=== PATIENT | male | born 1980 | race Caucasian/White ===

== ENCOUNTER → 2022-04-18 11:21 | Outpatient (CLI) | payer OTHER, MEDICAID, SELFPAY ==
[2022-04-18 12:58] LABS: Hemoglobin A1C% w Est Avg Glu 5.6 % (4.0-6.0)
[2022-04-18 13:08] LABS: Alanine Aminotransferase 28 IU/L (<50); Albumin 4.5 g/dL (3.5-5.0); Albumin Globulin Ratio 1.3 (1.0-2.8); Alkaline Phosphatase 48 U/L (38-126); Aspartate Aminotransferase 28 IU/L (17-59); BUN Creatinine Ratio 23.9 (6-22); Bilirubin Total 0.6 mg/dL (0.2-1.3); Blood Urea Nitrogen 21 mg/dL (9-20); Calcium 8.7 mg/dL (8.4-10.2); Carbon Dioxide 28 mmol/L (22-32); Chloride 102 mmol/L (98-107); Cholesterol 201 mg/dL (140-199); Estimated Glomerular Filt Rate > 60 mL/min (>60); Globulin 3.4 g/dL (1.7-4.1); Glucose 89 mg/dL (70-100); HDL Cholesterol 44 mg/dL (40-60); HEMOLYSIS 18 (0-50); LDL Cholesterol Calculated 126 mg/dL (<100); Potassium 4.6 mmol/L (3.4-5.1); Sodium 138 mmol/L (137-145); Total Protein 7.9 g/dL (6.3-8.2); Triglycerides 153 mg/dL (35-150)
== END ==
PROVIDERS: Family Provider Family Medicine; PCP Family Medicine; Referring Provider Family Medicine; Visit Provider Family Medicine
DX: R03.0 Elevated blood-pressure reading, without diagnosis of hypertension (principal)
CPT/HCPCS: 36415; 80053; 80061; 83036

== ENCOUNTER 2022-07-21 09:45 | Outpatient (RCR) | payer OTHER, MEDICAID, SELFPAY ==
--- NOTE | 2022-05-23 12:51 | PT.OIE ---
Current Diagnoses Impingement syndrome of unspecified shoulder (05/23/22) Lateral epicondylitis, right elbow (05/23/22) Sprain of unspecified ligament of right ankle, initial encounter (05/23/22) Sprain of unspecified ligament of right ankle, subsequent encounter (05/23/22) Past Medical History (Last Updated 04/19/22 @ 08:55 by Evangelina Nava DO) Acne (~1994) Benign essential HTN Depression Herpes (~2014) Hyperlipidemia Tourette syndrome (~2000) Visit Care Team Role Provider Type Evangelina Nava DO Attending Provider Physician Family Provider Primary Care Provider Referring Provider Specialty: Family Practice Address: [address] [place] [address], [address], [facility] Email: [email or web address] [facility] Initial Evaluation PT-OP-A Visit Information Start: 05/23/22 12:14 Freq: Status: Active Protocol: Document 05/23/22 10:30 DCW (Rec: 05/23/22 12:34 DCW [id number]) Out-Patient Physical Therapy Visit Information Visit Information Visit Type Initial Evaluation Visit Start Time 10:30 Visit Stop Time 11:15 Total Visit Minutes 45 Visit Number 1 Number of JOB SERVICE CONSULTANT Visits 0 Evaluation Information Evaluation Date 05/23/22 PT-OP-B Current Condition Start: 05/23/22 12:14 Freq: Status: Active Protocol: Document 05/23/22 10:30 DCW (Rec: 05/23/22 12:34 DCW [id number]) Current Condition History of Current Condition Onset Date Four month history Current Complaints R ankle pain, R forearm/elbow pain, left shoulder pain History of Current Condition Pt is a very active 42 year old male presenting with myriad complaints of various body parts. Biggest complaint at the moment is continued right lateral ankle pain following a fall and ankle sprain four months ago. Pt reported intense pain at the time, and required use of crutches for a while to walk around. Has improved since then, he is able to do most activities, but still gets increased pain with lateral movements or when standing sideways on a hill so his ankle is being forced into inversion. Second complaint is right forearm and elbow pain that began 3-4 months ago after carrying a kayak for an extended period of time. Pt has continuing pain with most repetitive wrist and finger extension motions. Pain is located mainly at lateral epicondyle, but can go through his lateral forearm. Lastly, pt complains of a ~25 year old left shoulder injury, causes difficulty lifting his arm up to the side and overhead, results occasionally with pain and weakness. All of these injuries limit his ability to perform expected job activities while working at [employer], which requires him to be very active and participate in lifting and carrying. Treatment Goals Patient/Caregiver Goals Improve ability to participate in work activities pain-free. Personal Factors Other Personal Factors That May Effect HTN, Depression, Tourette Therapy/Recovery syndrome PT-OP-C Subjective Start: 05/23/22 12:14 Freq: Status: Active Protocol: Document 05/23/22 10:30 DCW (Rec: 05/23/22 12:34 DCW [id number]) OP-PT Subjective Patient Comments Patient Comments I've been really looking forward to getting in here and finding out what I can do to help with some of this stuff. Patient Reported Progress Improving OP-PT Pain Assessment Pain Assessment Grid Paper Pain Assessment Grid Completed Yes: See scan in chart PT-OP-F Manual Assessment Start: 05/23/22 12:14 Freq: Status: Active Protocol: Document 05/23/22 10:30 DCW (Rec: 05/23/22 12:34 DCW [id number]) Manual Assessments Other Manual Assessments Other Manual Assessments Increased tone in right lateral calf, right lateral forearm. Tenderness to palpation specifically at R ATF ligament in ankle and lateral epicondyle/common extensor tendon. PT-OP-K Range of Motion Start: 05/23/22 12:14 Freq: Status: Active Protocol: Document 05/23/22 10:30 DCW (Rec: 05/23/22 12:34 DCW [id number]) Ankle and Foot Goniometric Range of Motion Ankle and Foot Right Active Testing Position Sitting Dorsiflexion with Knee Flexed 0 Dorsiflexion with Knee Extended 0 Plantarflexion 60 Inversion 38 Eversion 21 Left Active Testing Position Sitting Dorsiflexion with Knee Flexed 8 Dorsiflexion with Knee Extended 0 Plantarflexion 60 Inversion 43 Eversion 22 PT-OP-L Special Tests Start: 05/23/22 12:14 Freq: Status: Active Protocol: Document 05/23/22 10:30 DCW (Rec: 05/23/22 12:34 DCW [id number]) Special Tests Shoulder Special Tests Painful Arc Test Results Positive R Thompson Meño Impingement Test Results Positive R Empty Can Test Results Negative Drop Arm Rotator Cuff Test Results Negative Elbow Special Tests Varus- 25 Degrees Test Results Negative Valgus- 25 Degrees Test Results Negative Medial Epicondylitis Test Results Negative Lateral Epicondylitis Flexed Test Results Positive R Lateral Epicondylitis Extended Test Results Positive R Foot/Ankle Special Tests Les Test ER-15 Degrees Test Results Negative Post Tibiotalor Subluxation Test Results Negative Peroneal Subluxation Test Results Negative Anterior Draw Test Results Negative PT-OP-M Strength Start: 05/23/22 12:14 Freq: Status: Active Protocol: Document 05/23/22 10:30 DCW (Rec: 05/23/22 12:34 DCW [id number]) Wrist Strength Wrist Manual Muscle Testing Right Flexion (C7) 5 Normal Extension (C6) 4 Good Ulnar Deviation 5 Normal Radial Deviation 4 Good Comments Pain with Ext and RD Ankle/Foot Strength Ankle and Foot Manual Muscle Testing Right Dorsiflexion (L4) 4+ Good+ Plantarflexion (S1) 4+ Good+ Inversion 5 Normal Eversion (S1) 4 Good Comments Increased pain with resisted right ankle eversion PT-OP-T Assessment and Plan Start: 05/23/22 12:14 Freq: Status: Active Protocol: Document 05/23/22 10:30 DCW (Rec: 05/23/22 12:51 DCW [id number]) Physical Therapy Assessment Rehab Potential Rehabilitation Potential Good Evaluation Complexity Number of Personal Factors/Comorbidities 3 or More Number of Body Systems Impaired 4 or More Clinical Presentation at Evaluation Unstable Impairments Impairments Functional Activities, Functional Mobility,Pain,Soft Tissue Mobility,Strength,Tone Goals Three Impairment Pt has difficulty performing job functions due to forearm and elbow pain Hospital Chief Executive Officer Goal (LTG) Pt to report return to normal work activities, such as carrying heavy items and chopping wood, without causing pain in his right elbow. LTG Duration 07/23/22 Two Impairment Pt experiences increased pain in right ankle ambulating on uneven surfaces Hospital Chief Executive Officer Goal (LTG) Pt to demonstrate ability to walk on trails and other uneven surfaces with no right ankle pain by improving ankle strength and stability LTG Duration 07/23/22 One Impairment Pt does not have an appropriate home exercise program Short Term Goal (STG) Pt to be [id number] and compliant with an appropriate HEP STG Duration 06/22/22 Assessment Summary Assessment Pt presents with multiple complicated complaints and functional deficits, limiting both his work and recreation activities. Most significant complaint involves right ankle pain following an incident in which he suffered a twisted ankle. Pt shows signs of ATF ligament sprain. No noted actual joint laxity or signs of structural instability, still very point-specific pain at ATFL. Will likely benefit from focus on increasing strength and stability of right ankle, did educate pt that typical healing time following a severe sprain can approach one year. Second biggest complaint from pt is right elbow/forearm pain, mainly with carrying or repetitive movements. Appears to be consistent with lateral epicondylitis, continues to show some mild edema and inflammation right at the lateral epicondyle, as well as increased tenderness with palpation of the common extensor tendon. Will likely benefit from wrist and demurrage clerk strengthening, STM to decrease muscle tone, and modalities/ taping to help decrease inflammation. Lastly, left shoulder shows signs/symptoms of occasional supraspinatus impingement, pt's least concerned about this, typically goes long time without it bothering him, will typically hurt with overhead activities and long-lever arm lifting, should benefit from education and STM/joint mobilizations. Physical Therapy Plan Frequency and Duration Frequency of Treatment 1-2x/week Plan of Care Start Date 05/23/22 Plan of Care End Date 07/23/22 Therapeutic Interventions Therapeutic Interventions Home Exercise Program,Joint Mobilizations,Manual Therapy, Patient/Caregiver Education, Self-Care/Home Management,Soft Tissue Mobilization, Therapeutic Activities, Therapeutic Exercises Modalities Cold Pack/Ice Massage,Electric Stimulation,Hot Packs, Infrared Therapy,Iontophoresis ,Ultrasound Other Therapeutic Interventions Iontophoresis /c Dexamethasone , 4 mg/mL Next Visit Focus/Plan Next Note Type Treatment Note Next Visit Plan STM, stretching, strengthening , anti-inflamatory modalities
--- NOTE | 2022-05-23 12:53 | PT.OPPOC ---
Physical, Occupational & Speech Therapy At [facility] Current Diagnoses Impingement syndrome of unspecified shoulder (05/23/22) Lateral epicondylitis, right elbow (05/23/22) Sprain of unspecified ligament of right ankle, initial encounter (05/23/22) Sprain of unspecified ligament of right ankle, subsequent encounter (05/23/22) Visit Care Team Role Provider Type Evangelina Nava DO Attending Provider Physician Family Provider Primary Care Provider Referring Provider Specialty: [facility] Address: [address] [place] [address], [address], [facility] Email: [email or web address] Plan Of Care PT-OP-T Assessment and Plan Start: 05/23/22 12:14 Freq: Status: Active Protocol: Document 05/23/22 10:30 DCW (Rec: 05/23/22 12:51 DCW [id number]) Physical Therapy Assessment Rehab Potential Rehabilitation Potential Good Evaluation Complexity Number of Personal Factors/Comorbidities 3 or More Number of Body Systems Impaired 4 or More Clinical Presentation at Evaluation Unstable Impairments Impairments Functional Activities, Functional Mobility,Pain,Soft Tissue Mobility,Strength,Tone Goals Three Impairment Pt has difficulty performing job functions due to forearm and elbow pain [facility] Goal (LTG) Pt to report return to normal work activities, such as carrying heavy items and chopping wood, without causing pain in his right elbow. LTG Duration 07/23/22 Two Impairment Pt experiences increased pain in right ankle ambulating on uneven surfaces Penitentiary Goal (LTG) Pt to demonstrate ability to walk on trails and other uneven surfaces with no right ankle pain by improving ankle strength and stability LTG Duration 07/23/22 One Impairment Pt does not have an appropriate home exercise program Short Term Goal (STG) Pt to be [id number] and compliant with an appropriate HEP STG Duration 06/22/22 Assessment Summary Assessment Pt presents with multiple complicated complaints and functional deficits, limiting both his work and recreation activities. Most significant complaint involves right ankle pain following an incident in which he suffered a twisted ankle. Pt shows signs of ATF ligament sprain. No noted actual joint laxity or signs of structural instability, still very point-specific pain at ATFL. Will likely benefit from focus on increasing strength and stability of right ankle, did educate pt that typical healing time following a severe sprain can approach one year. Second biggest complaint from pt is right elbow/forearm pain, mainly with carrying or repetitive movements. Appears to be consistent with lateral epicondylitis, continues to show some mild edema and inflammation right at the lateral epicondyle, as well as increased tenderness with palpation of the common extensor tendon. Will likely benefit from wrist and business technology analyst strengthening, STM to decrease muscle tone, and modalities/ taping to help decrease inflammation. Lastly, left shoulder shows signs/symptoms of occasional supraspinatus impingement, pt's least concerned about this, typically goes long time without it bothering him, will typically hurt with overhead activities and long-lever arm lifting, should benefit from education and STM/joint mobilizations. Physical Therapy Plan Frequency and Duration Frequency of Treatment 1-2x/week Plan of Care Start Date 05/23/22 Plan of Care End Date 07/23/22 Therapeutic Interventions Therapeutic Interventions Home Exercise Program,Joint Mobilizations,Manual Therapy, Patient/Caregiver Education, Self-Care/Home Management,Soft Tissue Mobilization, Therapeutic Activities, Therapeutic Exercises Modalities Cold Pack/Ice Massage,Electric Stimulation,Hot Packs, Infrared Therapy,Iontophoresis ,Ultrasound Other Therapeutic Interventions Iontophoresis /c Dexamethasone , 4 mg/mL Next Visit Focus/Plan Next Note Type Treatment Note Next Visit Plan STM, stretching, strengthening , anti-inflammatory modalities Plan of Care Dates Plan of Care Start Date 05/23/22 Plan of Care End Date 07/23/22 Electronically Signed by: Meliton Nichols, PT 05/23/22 7581 If you are in agreement with this Plan of Care, please return a signed and dated copy. I have reviewed this Plan of Care and certify that the skilled therapy services above are required to meet the patient?s needs. Physician Signature Date Printed Name and Credentials Clinical Instructor Signature Printed Name and Credentials
--- NOTE | 2022-05-30 15:17 | PT.OTN ---
Current Diagnoses Impingement syndrome of unspecified shoulder (05/30/22) Lateral epicondylitis, right elbow (05/30/22) Sprain of unspecified ligament of right ankle, initial encounter (05/30/22) Sprain of unspecified ligament of right ankle, subsequent encounter (05/30/22) Physical Therapy Treatment Note PT-OP-A Visit Information Start: 05/23/22 12:14 Freq: Status: Active Protocol: Document 05/30/22 14:31 DCW (Rec: 05/30/22 15:17 DCW [id number]) Out-Patient Physical Therapy Visit Information Visit Information Visit Type Treatment Note Visit Start Time 14:31 Visit Stop Time 15:15 Total Visit Minutes 44 Visit Number 2 Number of PUPPY SITTER Visits 0 Evaluation Information Evaluation Date 05/23/22 PT-OP-B Current Condition Start: 05/23/22 12:14 Freq: Status: Active Protocol: Document 05/23/22 10:30 DCW (Rec: 05/23/22 12:34 DCW [id number]) Current Condition History of Current Condition Onset Date Four month history Current Complaints R ankle pain, R forearm/elbow pain, left shoulder pain History of Current Condition Pt is a very active 42 year old male presenting with myriad complaints of various body parts. Biggest complaint at the moment is continued right lateral ankle pain following a fall and ankle sprain four months ago. Pt reported intense pain at the time, and required use of crutches for a while to walk around. Has improved since then, he is able to do most activities, but still gets increased pain with lateral movements or when standing sideways on a hill so his ankle is being forced into inversion. Second complaint is right forearm and elbow pain that began 3-4 months ago after carrying a kayak for an extended period of time. Pt has continuing pain with most repetitive wrist and finger extension motions. Pain is located mainly at lateral epicondyle, but can go through his lateral forearm. Lastly, pt complains of a ~25 year old left shoulder injury, causes difficulty lifting his arm up to the side and overhead, results occasionally with pain and weakness. All of these injuries limit his ability to perform expected job activities while working at [employer], which requires him to be very active and participate in lifting and carrying. Treatment Goals Patient/Caregiver Goals Improve ability to participate in work activities pain-free. Personal Factors Other Personal Factors That May Effect HTN, Depression, Tourette Therapy/Recovery syndrome PT-OP-C Subjective Start: 05/23/22 12:14 Freq: Status: Active Protocol: Document 05/30/22 14:31 DCW (Rec: 05/30/22 15:17 DCW [id number]) OP-PT Subjective Patient Comments Patient Comments A little sore in the arm, but the ankle is feeling pretty well. PT-OP-F Manual Assessment Start: 05/23/22 12:14 Freq: Status: Active Protocol: Document 05/23/22 10:30 DCW (Rec: 05/23/22 12:34 DCW [id number]) Manual Assessments Other Manual Assessments Other Manual Assessments Increased tone in right lateral calf, right lateral forearm. Tenderness to palpation specifically at R ATF ligament in ankle and lateral epicondyle/common extensor tendon. PT-OP-K Range of Motion Start: 05/23/22 12:14 Freq: Status: Active Protocol: Document 05/23/22 10:30 DCW (Rec: 05/23/22 12:34 DCW [id number]) Ankle and Foot Goniometric Range of Motion Ankle and Foot Right Active Testing Position Sitting Dorsiflexion with Knee Flexed 0 Dorsiflexion with Knee Extended 0 Plantarflexion 60 Inversion 38 Eversion 21 Left Active Testing Position Sitting Dorsiflexion with Knee Flexed 8 Dorsiflexion with Knee Extended 0 Plantarflexion 60 Inversion 43 Eversion 22 PT-OP-L Special Tests Start: 05/23/22 12:14 Freq: Status: Active Protocol: Document 05/23/22 10:30 DCW (Rec: 05/23/22 12:34 DCW [id number]) Special Tests Shoulder Special Tests Painful Arc Test Results Positive R Thompson Meño Impingement Test Results Positive R Empty Can Test Results Negative Drop Arm Rotator Cuff Test Results Negative Elbow Special Tests Varus- 25 Degrees Test Results Negative Valgus- 25 Degrees Test Results Negative Medial Epicondylitis Test Results Negative Lateral Epicondylitis Flexed Test Results Positive R Lateral Epicondylitis Extended Test Results Positive R Foot/Ankle Special Tests Les Test ER-15 Degrees Test Results Negative Post Tibiotalor Subluxation Test Results Negative Peroneal Subluxation Test Results Negative Anterior Draw Test Results Negative PT-OP-M Strength Start: 05/23/22 12:14 Freq: Status: Active Protocol: Document 05/23/22 10:30 DCW (Rec: 05/23/22 12:34 DCW [id number]) Wrist Strength Wrist Manual Muscle Testing Right Flexion (C7) 5 Normal Extension (C6) 4 Good Ulnar Deviation 5 Normal Radial Deviation 4 Good Comments Pain with Ext and RD Ankle/Foot Strength Ankle and Foot Manual Muscle Testing Right Dorsiflexion (L4) 4+ Good+ Plantarflexion (S1) 4+ Good+ Inversion 5 Normal Eversion (S1) 4 Good Comments Increased pain with resisted right ankle eversion PT-OP-Q Treatments Start: 05/23/22 12:14 Freq: Status: Active Protocol: Document 05/30/22 14:31 DCW (Rec: 05/30/22 15:17 DCW [id number]) Therapeutic Exercises Sitting Exercises Supination/Pronation Sitting Exercise Name Supination/Pronation Side right Equipment Used Hammer Wrist Flexion Sitting Exercise Name 4-way wrist flexion Side right Resistance Blue T-band Standing Exercises Heel Raises Standing Exercise Name Eccentric SL heel raises Comments Up with 2, down with 1 Manual Therapy Treatment Soft Tissue Mobilization Common Extenson Tendon Body Location Common Extensor Tendon Mobilization Type Cross-Friction Intensity/Depth Moderate Body Position Sitting Neuro Re-Education Treatment Balance Activities BAPS Details DF/PF, Inv/Ev, CW/CWW Comments Lv 3 Tilt Board Details DF/PF, Inv/Ev Comments SLS Foam Stance Details SLS Surface Blue Foam PT-OP-R Modalities Start: 05/23/22 12:14 Freq: Status: Active Protocol: Document 05/30/22 14:31 DCW (Rec: 05/30/22 15:17 DCW [id number]) Iontophoresis Treatment R Lateral Epicondyle Treatment Medication Dexamethasone Medication Amount (mL) (ml) 1.0 Medication Dosage 4 mg/mL Treatment Polarity Negative to Negative Treatment Duration (minutes) 4 PT-OP-T Assessment and Plan Start: 05/23/22 12:14 Freq: Status: Active Protocol: Document 05/30/22 14:31 DCW (Rec: 05/30/22 15:17 DCW [id number]) Physical Therapy Assessment Impairments Impairments Functional Activities, Functional Mobility,Pain,Soft Tissue Mobility,Strength,Tone Goals Three Impairment Pt has difficulty performing job functions due to forearm and elbow pain Strategic Planning Analyst Goal (LTG) Pt to report return to normal work activities, such as carrying heavy items and chopping wood, without causing pain in his right elbow. LTG Duration 07/23/22 Two Impairment Pt experiences increased pain in right ankle ambulating on uneven surfaces Fpc Goal (LTG) Pt to demonstrate ability to walk on trails and other uneven surfaces with no right ankle pain by improving ankle strength and stability LTG Duration 07/23/22 One Impairment Pt does not have an appropriate home exercise program Short Term Goal (STG) Pt to be [id number] and compliant with an appropriate HEP STG Duration 06/22/22 Assessment Summary Assessment Focused on both lateral epicondylitis and ankle strengthening/stability today, pt tolerated well, was happy with how much he was able to tolerate. Trial of Ionto on R lateral epicondyle to assist with inflammation control. Physical Therapy Plan Frequency and Duration Frequency of Treatment 1-2x/week Plan of Care Start Date 05/23/22 Plan of Care End Date 07/23/22 Therapeutic Interventions Therapeutic Interventions Home Exercise Program,Joint Mobilizations,Manual Therapy, Patient/Caregiver Education, Self-Care/Home Management,Soft Tissue Mobilization, Therapeutic Activities, Therapeutic Exercises Modalities Cold Pack/Ice Massage,Electric Stimulation,Hot Packs, Infrared Therapy,Iontophoresis ,Ultrasound Other Therapeutic Interventions Iontophoresis /c Dexamethasone , 4 mg/mL Next Visit Focus/Plan Next Note Type Treatment Note Next Visit Plan Continue to challenge ankle stability with balance challenges, increase ankle strengthening, assess effectiveness of Ionto
--- NOTE | 2022-06-06 10:23 | PT.OTN ---
Current Diagnoses Impingement syndrome of unspecified shoulder (06/06/22) Lateral epicondylitis, right elbow (06/06/22) Sprain of unspecified ligament of right ankle, initial encounter (06/06/22) Sprain of unspecified ligament of right ankle, subsequent encounter (06/06/22) Physical Therapy Treatment Note PT-OP-A Visit Information Start: 05/23/22 12:14 Freq: Status: Active Protocol: Document 06/06/22 09:33 SP (Rec: 06/06/22 10:23 SP [id number]) Out-Patient Physical Therapy Visit Information Visit Information Visit Type Treatment Note Visit Start Time 09:33 Visit Stop Time 10:23 Total Visit Minutes 50 Visit Number 3 Number of PORTABLE POWER TOOL REPAIRER Visits 1 Evaluation Information Evaluation Date 05/23/22 PT-OP-B Current Condition Start: 05/23/22 12:14 Freq: Status: Active Protocol: Document 05/23/22 10:30 DCW (Rec: 05/23/22 12:34 DCW [id number]) Current Condition History of Current Condition Onset Date Four month history Current Complaints R ankle pain, R forearm/elbow pain, left shoulder pain History of Current Condition Pt is a very active 42 year old male presenting with myriad complaints of various body parts. Biggest complaint at the moment is continued right lateral ankle pain following a fall and ankle sprain four months ago. Pt reported intense pain at the time, and required use of crutches for a while to walk around. Has improved since then, he is able to do most activities, but still gets increased pain with lateral movements or when standing sideways on a hill so his ankle is being forced into inversion. Second complaint is right forearm and elbow pain that began 3-4 months ago after carrying a kayak for an extended period of time. Pt has continuing pain with most repetitive wrist and finger extension motions. Pain is located mainly at lateral epicondyle, but can go through his lateral forearm. Lastly, pt complains of a ~25 year old left shoulder injury, causes difficulty lifting his arm up to the side and overhead, results occasionally with pain and weakness. All of these injuries limit his ability to perform expected job activities while working at [employer], which requires him to be very active and participate in lifting and carrying. Treatment Goals Patient/Caregiver Goals Improve ability to participate in work activities pain-free. Personal Factors Other Personal Factors That May Effect HTN, Depression, Tourette Therapy/Recovery syndrome PT-OP-C Subjective Start: 05/23/22 12:14 Freq: Status: Active Protocol: Document 06/06/22 09:33 SP (Rec: 06/06/22 10:23 SP [id number]) OP-PT Subjective Patient Comments Patient Comments Pt reports iontopatch seemed to help saw changes and wants to reapply. Feels needs some support with gripping. Is compliant with massage and HEP . Notices has most pain with wrist extension and exercises are this directioning so cautious doing. Pt stated able to stand support up to 30 min under load. PT-OP-F Manual Assessment Start: 05/23/22 12:14 Freq: Status: Active Protocol: Document 05/23/22 10:30 DCW (Rec: 05/23/22 12:34 DCW [id number]) Manual Assessments Other Manual Assessments Other Manual Assessments Increased tone in right lateral calf, right lateral forearm. Tenderness to palpation specifically at R ATF ligament in ankle and lateral epicondyle/common extensor tendon. PT-OP-K Range of Motion Start: 05/23/22 12:14 Freq: Status: Active Protocol: Document 05/23/22 10:30 DCW (Rec: 05/23/22 12:34 DCW [id number]) Ankle and Foot Goniometric Range of Motion Ankle and Foot Right Active Testing Position Sitting Dorsiflexion with Knee Flexed 0 Dorsiflexion with Knee Extended 0 Plantarflexion 60 Inversion 38 Eversion 21 Left Active Testing Position Sitting Dorsiflexion with Knee Flexed 8 Dorsiflexion with Knee Extended 0 Plantarflexion 60 Inversion 43 Eversion 22 PT-OP-L Special Tests Start: 05/23/22 12:14 Freq: Status: Active Protocol: Document 05/23/22 10:30 DCW (Rec: 05/23/22 12:34 DCW [id number]) Special Tests Shoulder Special Tests Painful Arc Test Results Positive R Thompson Meño Impingement Test Results Positive R Empty Can Test Results Negative Drop Arm Rotator Cuff Test Results Negative Elbow Special Tests Varus- 25 Degrees Test Results Negative Valgus- 25 Degrees Test Results Negative Medial Epicondylitis Test Results Negative Lateral Epicondylitis Flexed Test Results Positive R Lateral Epicondylitis Extended Test Results Positive R Foot/Ankle Special Tests Les Test ER-15 Degrees Test Results Negative Post Tibiotalor Subluxation Test Results Negative Peroneal Subluxation Test Results Negative Anterior Draw Test Results Negative PT-OP-M Strength Start: 05/23/22 12:14 Freq: Status: Active Protocol: Document 05/23/22 10:30 DCW (Rec: 05/23/22 12:34 DCW [id number]) Wrist Strength Wrist Manual Muscle Testing Right Flexion (C7) 5 Normal Extension (C6) 4 Good Ulnar Deviation 5 Normal Radial Deviation 4 Good Comments Pain with Ext and RD Ankle/Foot Strength Ankle and Foot Manual Muscle Testing Right Dorsiflexion (L4) 4+ Good+ Plantarflexion (S1) 4+ Good+ Inversion 5 Normal Eversion (S1) 4 Good Comments Increased pain with resisted right ankle eversion PT-OP-Q Treatments Start: 05/23/22 12:14 Freq: Status: Active Protocol: Document 06/06/22 09:33 SP (Rec: 06/06/22 10:23 SP [id number]) Therapeutic Exercises 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 Standing Exercises resisted rows Standing Exercise Name added to HEP Side bilateral Resistance Tb #3 (green) Equipment Used standing on 1/2 foam roll Reps/Minutes x10 rows Comments cued core, posture, level foot stability- good Heel Raises Standing Exercise Name Eccentric SL heel raises Equipment Used bottom step, use rail support Reps/Minutes x10 double up, RLE down, x5 reps single up/down RLE step Comments Single RLE up/eccentric down Floor>step today- painfree range sherine Manual Therapy Treatment Soft Tissue Mobilization Common Extenson Tendon Body Location Common Extensor Tendon Mobilization Type Cross-Friction,Myofascial Release,Sustained Pressure, Other Intensity/Depth Moderate Body Position Sitting Comments Manual gentle cross friction and pressure MWM wrist flex/ ext/pron/sup, ed self application with good feedback for benefits but not cause pain. Joint Mobilizations wrist Joint R AP, PA, lateral carpals, ulnoradial distal PA/AP Comments add next tx if needed to improve extension. Neuro Re-Education Treatment Balance Activities BAPS Details DF/PF, Inv/Ev, CW/CWW Equipment tennis ball standing Comments good feedback similar to BAPS Foam Stance Details SLS RLE Surface pod (assimulate home rocks), 1 /2 foam roll (1/2 log home) clock reaching Reps/Duration 1 min total pod, x10 reps each (6, 9, 10 o'clock) Comments cued postural alignment, core/ scap complex engagement, knee with foot alignment PT-OP-R Modalities Start: 05/23/22 12:14 Freq: Status: Active Protocol: Document 06/06/22 09:33 SP (Rec: 06/06/22 10:23 SP [id number]) Iontophoresis Treatment R Lateral Epicondyle Treatment Medication Dexamethasone Medication Amount (mL) (ml) 1.0 Medication Dosage 4 mg/mL Treatment Polarity Negative to Negative Treatment Duration (minutes) 4 PT-OP-T Assessment and Plan Start: 05/23/22 12:14 Freq: Status: Active Protocol: Document 06/06/22 09:33 SP (Rec: 06/06/22 10:23 SP [id number]) Physical Therapy Assessment Goals Three Impairment Pt has difficulty performing job functions due to forearm and elbow pain Legal Process Specialist Goal (LTG) Pt to report return to normal work activities, such as carrying heavy items and chopping wood, without causing pain in his right elbow. LTG Duration 07/23/22 Two Impairment Pt experiences increased pain in right ankle ambulating on uneven surfaces Legal Process Specialist Goal (LTG) Pt to demonstrate ability to walk on trails and other uneven surfaces with no right ankle pain by improving ankle strength and stability LTG Duration 07/23/22 One Impairment Pt does not have an appropriate home exercise program Short Term Goal (STG) Pt to be [id number] and compliant with an appropriate HEP STG Duration 06/22/22 Assessment Summary Assessment Pt good response to HEP review , utilized pods and 1/2 foam roll assimulation using log same shape at home to stand on , improved stability SLS on R added challenge reach LLE various angles with slow pacing core/ posturing self corrections post cues. Good LT fac with added resisted rows uneven surface BLE stance for ankle and shld strengthening. Physical Therapy Plan Frequency and Duration Frequency of Treatment 1-2x/week Plan of Care Start Date 05/23/22 Plan of Care End Date 07/23/22 Therapeutic Interventions Therapeutic Interventions Home Exercise Program,Joint Mobilizations,Manual Therapy, Patient/Caregiver Education, Self-Care/Home Management,Soft Tissue Mobilization, Therapeutic Activities, Therapeutic Exercises Modalities Cold Pack/Ice Massage,Electric Stimulation,Hot Packs, Infrared Therapy,Iontophoresis ,Ultrasound Other Therapeutic Interventions Iontophoresis /c Dexamethasone , 4 mg/mL Next Visit Focus/Plan Next Note Type Treatment Note Next Visit Plan Recheck response to Ionto, added resisted row on uneven surface, SLS RLE uneven surface LLE reach. POC: Continue to challenge ankle stability with balance challenges, increase ankle strengthening, assess effectiveness of Ionto
--- NOTE | 2022-06-13 10:48 | PT.OTN ---
Current Diagnoses Impingement syndrome of unspecified shoulder (06/13/22) Lateral epicondylitis, right elbow (06/13/22) Sprain of unspecified ligament of right ankle, initial encounter (06/13/22) Sprain of unspecified ligament of right ankle, subsequent encounter (06/13/22) Physical Therapy Treatment Note PT-OP-A Visit Information Start: 05/23/22 12:14 Freq: Status: Active Protocol: Document 06/13/22 09:54 SP (Rec: 06/13/22 11:15 SP [id number]) Out-Patient Physical Therapy Visit Information Visit Information Visit Type Treatment Note Visit Start Time 10:03 Visit Stop Time 10:48 Total Visit Minutes 45 Visit Number 4 Number of APPEALS BOARD REFEREE Visits 2 Evaluation Information Evaluation Date 05/23/22 PT-OP-B Current Condition Start: 05/23/22 12:14 Freq: Status: Active Protocol: Document 05/23/22 10:30 DCW (Rec: 05/23/22 12:34 DCW [id number]) Current Condition History of Current Condition Onset Date Four month history Current Complaints R ankle pain, R forearm/elbow pain, left shoulder pain History of Current Condition Pt is a very active 42 year old male presenting with myriad complaints of various body parts. Biggest complaint at the moment is continued right lateral ankle pain following a fall and ankle sprain four months ago. Pt reported intense pain at the time, and required use of crutches for a while to walk around. Has improved since then, he is able to do most activities, but still gets increased pain with lateral movements or when standing sideways on a hill so his ankle is being forced into inversion. Second complaint is right forearm and elbow pain that began 3-4 months ago after carrying a kayak for an extended period of time. Pt has continuing pain with most repetitive wrist and finger extension motions. Pain is located mainly at lateral epicondyle, but can go through his lateral forearm. Lastly, pt complains of a ~25 year old left shoulder injury, causes difficulty lifting his arm up to the side and overhead, results occasionally with pain and weakness. All of these injuries limit his ability to perform expected job activities while working at [employer], which requires him to be very active and participate in lifting and carrying. Treatment Goals Patient/Caregiver Goals Improve ability to participate in work activities pain-free. Personal Factors Other Personal Factors That May Effect HTN, Depression, Tourette Therapy/Recovery syndrome PT-OP-C Subjective Start: 05/23/22 12:14 Freq: Status: Active Protocol: Document 06/13/22 09:54 SP (Rec: 06/13/22 11:15 SP [id number]) OP-PT Subjective Patient Comments Patient Comments Pt reports had to carry some heavier items with gripping and scrubbing motions at work this week so R elbow more inflamed today but iontopatch felt helped alot with no adverse reactions. He thinks resprained his R ankle walking down stairs recently on shallow steps with ankle rolled inward and then again stepped on outside root. He stated the ionto patch over R lateral elbow was helpful with pain reduction with ability to do some tasks at work with less irritation and no adverse affects. PT-OP-F Manual Assessment Start: 05/23/22 12:14 Freq: Status: Active Protocol: Document 05/23/22 10:30 DCW (Rec: 05/23/22 12:34 DCW [id number]) Manual Assessments Other Manual Assessments Other Manual Assessments Increased tone in right lateral calf, right lateral forearm. Tenderness to palpation specifically at R ATF ligament in ankle and lateral epicondyle/common extensor tendon. PT-OP-K Range of Motion Start: 05/23/22 12:14 Freq: Status: Active Protocol: Document 05/23/22 10:30 DCW (Rec: 05/23/22 12:34 DCW [id number]) Ankle and Foot Goniometric Range of Motion Ankle and Foot Right Active Testing Position Sitting Dorsiflexion with Knee Flexed 0 Dorsiflexion with Knee Extended 0 Plantarflexion 60 Inversion 38 Eversion 21 Left Active Testing Position Sitting Dorsiflexion with Knee Flexed 8 Dorsiflexion with Knee Extended 0 Plantarflexion 60 Inversion 43 Eversion 22 PT-OP-L Special Tests Start: 05/23/22 12:14 Freq: Status: Active Protocol: Document 05/23/22 10:30 DCW (Rec: 05/23/22 12:34 DCW [id number]) Special Tests Shoulder Special Tests Painful Arc Test Results Positive R Thompson Meño Impingement Test Results Positive R Empty Can Test Results Negative Drop Arm Rotator Cuff Test Results Negative Elbow Special Tests Varus- 25 Degrees Test Results Negative Valgus- 25 Degrees Test Results Negative Medial Epicondylitis Test Results Negative Lateral Epicondylitis Flexed Test Results Positive R Lateral Epicondylitis Extended Test Results Positive R Foot/Ankle Special Tests Les Test ER-15 Degrees Test Results Negative Post Tibiotalor Subluxation Test Results Negative Peroneal Subluxation Test Results Negative Anterior Draw Test Results Negative PT-OP-M Strength Start: 05/23/22 12:14 Freq: Status: Active Protocol: Document 05/23/22 10:30 DCW (Rec: 05/23/22 12:34 DCW [id number]) Wrist Strength Wrist Manual Muscle Testing Right Flexion (C7) 5 Normal Extension (C6) 4 Good Ulnar Deviation 5 Normal Radial Deviation 4 Good Comments Pain with Ext and RD Ankle/Foot Strength Ankle and Foot Manual Muscle Testing Right Dorsiflexion (L4) 4+ Good+ Plantarflexion (S1) 4+ Good+ Inversion 5 Normal Eversion (S1) 4 Good Comments Increased pain with resisted right ankle eversion PT-OP-Q Treatments Start: 05/23/22 12:14 Freq: Status: Active Protocol: Document 06/13/22 09:54 SP (Rec: 06/13/22 11:15 SP [id number]) Therapeutic Exercises Sitting Exercises ankle 4 way Sitting Exercise Name PF, DF, EV, IV : added to HEP Side right Resistance TB #3 green (latex)- increase #4 nex ttx Reps/Minutes x10 reps each Comments cued slow eccentric return, painfree range- good work response Standing Exercises tricep ext Standing Exercise Name w/ wrist flexion: added to HEP Side right Resistance Tb #3 (tejon green latex) Reps/Minutes x10 reps Comments cued slow eccentric return, good feedback muscle support elbow painfree Manual Therapy Treatment Soft Tissue Mobilization Common Extenson Tendon Body Location Common Extensor Tendon Mobilization Type Cross-Friction,Myofascial Release,Sustained Pressure, Other Intensity/Depth Moderate Body Position Sitting Comments Manual gentle cross friction and pressure MWM wrist flex/ ext/pron/sup. Pt states doing at home and helps lessen tension in elbow. Joint Mobilizations ankle Joint R Direction calcaneal med/ lat, MTP med/ lat, talocrual AP Grade II Comments good response painfree Taping K taping Body Location R ankle Type of Tape Kinesio Tape Skin Inspection normal, intact Comments med, lat plantar arch to post med/lat malleolus to mid tib/ fib Good Self-Care/Home Management Treatment Education Patient Education Joint Protection,Pain Management Other Education Extra time spent on aircast for R ankle and lateral epicondyle strap support R elbow for now when doing more strenuous gripping/lifting at work or walking over uneven surfaces for R ankle. Good response to K taping med/lat R ankle stabililty support during ex. PT-OP-R Modalities Start: 05/23/22 12:14 Freq: Status: Active Protocol: Document 06/13/22 09:54 SP (Rec: 06/13/22 11:15 SP [id number]) Iontophoresis Treatment R Lateral Epicondyle Treatment Medication Dexamethasone Medication Amount (mL) (ml) 1.0 Medication Dosage 4 mg/mL Treatment Polarity Negative to Negative Treatment Duration (minutes) 4 Patient Tolerance Good PT-OP-T Assessment and Plan Start: 05/23/22 12:14 Freq: Status: Active Protocol: Document 06/13/22 09:54 SP (Rec: 06/13/22 11:15 SP [id number]) Physical Therapy Assessment Goals Three Impairment Pt has difficulty performing job functions due to forearm and elbow pain Client Experience Administrator Goal (LTG) Pt to report return to normal work activities, such as carrying heavy items and chopping wood, without causing pain in his right elbow. LTG Duration 07/23/22 Two Impairment Pt experiences increased pain in right ankle ambulating on uneven surfaces Client Experience Administrator Goal (LTG) Pt to demonstrate ability to walk on trails and other uneven surfaces with no right ankle pain by improving ankle strength and stability LTG Duration 07/23/22 One Impairment Pt does not have an appropriate home exercise program Short Term Goal (STG) Pt to be [id number] and compliant with an appropriate HEP STG Duration 06/22/22 Assessment Summary Assessment Pt responded to manual and supportive Ktaping to R ankle stability. Good response to added TB tricep ext w/ wrist flex and 4 way ankle for progress strengthening this tx . I feel these new exercises helping with weaknesses are realizing, no pain. Physical Therapy Plan Frequency and Duration Frequency of Treatment 1-2x/week Plan of Care Start Date 05/23/22 Plan of Care End Date 07/23/22 Therapeutic Interventions Therapeutic Interventions Home Exercise Program,Joint Mobilizations,Manual Therapy, Patient/Caregiver Education, Self-Care/Home Management,Soft Tissue Mobilization, Therapeutic Activities, Therapeutic Exercises Modalities Cold Pack/Ice Massage,Electric Stimulation,Hot Packs, Infrared Therapy,Iontophoresis ,Ultrasound Other Therapeutic Interventions Iontophoresis /c Dexamethasone , 4 mg/mL Next Visit Focus/Plan Next Note Type Treatment Note Next Visit Plan Recheck response to added 4 way ankle, tricep ex and 4 way wrist HEP. REcheck if able to progress SLS previous HEP POC: Continue to challenge ankle stability with balance challenges, increase ankle strengthening, assess effectiveness of Ionto
--- NOTE | 2022-06-20 11:01 | PT.OTN ---
Current Diagnoses Impingement syndrome of unspecified shoulder (06/20/22) Lateral epicondylitis, right elbow (06/20/22) Sprain of unspecified ligament of right ankle, initial encounter (06/20/22) Sprain of unspecified ligament of right ankle, subsequent encounter (06/20/22) Physical Therapy Treatment Note PT-OP-A Visit Information Start: 05/23/22 12:14 Freq: Status: Active Protocol: Document 06/20/22 10:15 DCW (Rec: 06/20/22 11:01 DCW [id number]) Out-Patient Physical Therapy Visit Information Visit Information Visit Type Treatment Note Visit Start Time 10:15 Visit Stop Time 11:00 Total Visit Minutes 45 Visit Number 5 Number of COATING MIXER Visits 0 Evaluation Information Evaluation Date 05/23/22 PT-OP-B Current Condition Start: 05/23/22 12:14 Freq: Status: Active Protocol: Document 05/23/22 10:30 DCW (Rec: 05/23/22 12:34 DCW [id number]) Current Condition History of Current Condition Onset Date Four month history Current Complaints R ankle pain, R forearm/elbow pain, left shoulder pain History of Current Condition Pt is a very active 42 year old male presenting with myriad complaints of various body parts. Biggest complaint at the moment is continued right lateral ankle pain following a fall and ankle sprain four months ago. Pt reported intense pain at the time, and required use of crutches for a while to walk around. Has improved since then, he is able to do most activities, but still gets increased pain with lateral movements or when standing sideways on a hill so his ankle is being forced into inversion. Second complaint is right forearm and elbow pain that began 3-4 months ago after carrying a kayak for an extended period of time. Pt has continuing pain with most repetitive wrist and finger extension motions. Pain is located mainly at lateral epicondyle, but can go through his lateral forearm. Lastly, pt complains of a ~25 year old left shoulder injury, causes difficulty lifting his arm up to the side and overhead, results occasionally with pain and weakness. All of these injuries limit his ability to perform expected job activities while working at [employer], which requires him to be very active and participate in lifting and carrying. Treatment Goals Patient/Caregiver Goals Improve ability to participate in work activities pain-free. Personal Factors Other Personal Factors That May Effect HTN, Depression, Tourette Therapy/Recovery syndrome PT-OP-C Subjective Start: 05/23/22 12:14 Freq: Status: Active Protocol: Document 06/20/22 10:15 DCW (Rec: 06/20/22 11:01 DCW [id number]) OP-PT Subjective Patient Comments Patient Comments Pt reports work was brutal and his right arm is bothering him, but he is in high spirits. PT-OP-F Manual Assessment Start: 05/23/22 12:14 Freq: Status: Active Protocol: Document 05/23/22 10:30 DCW (Rec: 05/23/22 12:34 DCW [id number]) Manual Assessments Other Manual Assessments Other Manual Assessments Increased tone in right lateral calf, right lateral forearm. Tenderness to palpation specifically at R ATF ligament in ankle and lateral epicondyle/common extensor tendon. PT-OP-K Range of Motion Start: 05/23/22 12:14 Freq: Status: Active Protocol: Document 05/23/22 10:30 DCW (Rec: 05/23/22 12:34 DCW [id number]) Ankle and Foot Goniometric Range of Motion Ankle and Foot Right Active Testing Position Sitting Dorsiflexion with Knee Flexed 0 Dorsiflexion with Knee Extended 0 Plantarflexion 60 Inversion 38 Eversion 21 Left Active Testing Position Sitting Dorsiflexion with Knee Flexed 8 Dorsiflexion with Knee Extended 0 Plantarflexion 60 Inversion 43 Eversion 22 PT-OP-L Special Tests Start: 05/23/22 12:14 Freq: Status: Active Protocol: Document 05/23/22 10:30 DCW (Rec: 05/23/22 12:34 DCW [id number]) Special Tests Shoulder Special Tests Painful Arc Test Results Positive R Thompson Meño Impingement Test Results Positive R Empty Can Test Results Negative Drop Arm Rotator Cuff Test Results Negative Elbow Special Tests Varus- 25 Degrees Test Results Negative Valgus- 25 Degrees Test Results Negative Medial Epicondylitis Test Results Negative Lateral Epicondylitis Flexed Test Results Positive R Lateral Epicondylitis Extended Test Results Positive R Foot/Ankle Special Tests Les Test ER-15 Degrees Test Results Negative Post Tibiotalor Subluxation Test Results Negative Peroneal Subluxation Test Results Negative Anterior Draw Test Results Negative PT-OP-M Strength Start: 05/23/22 12:14 Freq: Status: Active Protocol: Document 05/23/22 10:30 DCW (Rec: 05/23/22 12:34 DCW [id number]) Wrist Strength Wrist Manual Muscle Testing Right Flexion (C7) 5 Normal Extension (C6) 4 Good Ulnar Deviation 5 Normal Radial Deviation 4 Good Comments Pain with Ext and RD Ankle/Foot Strength Ankle and Foot Manual Muscle Testing Right Dorsiflexion (L4) 4+ Good+ Plantarflexion (S1) 4+ Good+ Inversion 5 Normal Eversion (S1) 4 Good Comments Increased pain with resisted right ankle eversion PT-OP-Q Treatments Start: 05/23/22 12:14 Freq: Status: Active Protocol: Document 06/20/22 10:15 DCW (Rec: 06/20/22 11:01 DCW [id number]) Gym Equipment Shuttle Balance Red Details DF/PF, Staggered, Lateral Weight shift Manual Therapy Treatment Soft Tissue Mobilization Common Extenson Tendon Body Location Common Extensor Tendon Mobilization Type Cross-Friction,Myofascial Release,Sustained Pressure, Other Intensity/Depth Moderate Body Position Sitting Comments Manual gentle cross friction and pressure MWM wrist flex/ ext/pron/sup. Pt states doing at home and helps lessen tension in elbow. Joint Mobilizations ankle Joint R Direction calcaneal med/ lat, MTP med/ lat, talocrual AP Grade III Comments good response painfree Neuro Re-Education Treatment Balance Activities Stepping stones Details Balance pod stepping stones BAPS Details DF/PF, Inv/Ev, CW/CWW Comments Lv 4 Foam Stance Details SLS RLE Surface Balance pod Comments cued postural alignment, core/ scap complex engagement, knee with foot alignment PT-OP-R Modalities Start: 05/23/22 12:14 Freq: Status: Active Protocol: Document 06/20/22 10:15 DCW (Rec: 06/20/22 11:01 DCW [id number]) Iontophoresis Treatment R Lateral Epicondyle Treatment Medication Dexamethasone Medication Amount (mL) (ml) 1.0 Medication Dosage 4 mg/mL Treatment Polarity Negative to Negative Treatment Duration (minutes) 4 Patient Tolerance Good PT-OP-T Assessment and Plan Start: 05/23/22 12:14 Freq: Status: Active Protocol: Document 06/20/22 10:15 DCW (Rec: 06/20/22 11:01 DCW [id number]) Physical Therapy Assessment Impairments Impairments Functional Activities, Functional Mobility,Pain,Soft Tissue Mobility,Strength,Tone Goals Three Impairment Pt has difficulty performing job functions due to forearm and elbow pain Skilled Nursing Goal (LTG) Pt to report return to normal work activities, such as carrying heavy items and chopping wood, without causing pain in his right elbow. LTG Duration 07/23/22 Two Impairment Pt experiences increased pain in right ankle ambulating on uneven surfaces Skilled Nursing Goal (LTG) Pt to demonstrate ability to walk on trails and other uneven surfaces with no right ankle pain by improving ankle strength and stability LTG Duration 07/23/22 One Impairment Pt does not have an appropriate home exercise program Short Term Goal (STG) Pt to be [id number] and compliant with an appropriate HEP STG Duration 06/22/22 Assessment Summary Assessment Pt reports to ordering an ankle brace to help with stability during work. Showing noticeable hyperlaxity in right wrist, pt does note seeming to remember an old injury to that joint. Tolerating treatment very well , has been compliant with HEP thus far. Physical Therapy Plan Frequency and Duration Frequency of Treatment 1-2x/week Plan of Care Start Date 05/23/22 Plan of Care End Date 07/23/22 Therapeutic Interventions Therapeutic Interventions Home Exercise Program,Joint Mobilizations,Manual Therapy, Patient/Caregiver Education, Self-Care/Home Management,Soft Tissue Mobilization, Therapeutic Activities, Therapeutic Exercises Modalities Cold Pack/Ice Massage,Electric Stimulation,Hot Packs, Infrared Therapy,Iontophoresis ,Ultrasound Other Therapeutic Interventions Iontophoresis /c Dexamethasone , 4 mg/mL Next Visit Focus/Plan Next Note Type Treatment Note Next Visit Plan Recheck response to added 4 way ankle, tricep ex and 4 way wrist HEP. REcheck if able to progress SLS previous HEP POC: Continue to challenge ankle stability with balance challenges, increase ankle strengthening, assess effectiveness of Ionto
--- NOTE | 2022-06-27 11:04 | PT.OTN ---
Current Diagnoses Impingement syndrome of unspecified shoulder (06/27/22) Lateral epicondylitis, right elbow (06/27/22) Sprain of unspecified ligament of right ankle, initial encounter (06/27/22) Sprain of unspecified ligament of right ankle, subsequent encounter (06/27/22) Physical Therapy Treatment Note PT-OP-A Visit Information Start: 05/23/22 12:14 Freq: Status: Active Protocol: Document 06/27/22 10:16 DCW (Rec: 06/27/22 11:04 DCW [id number]) Out-Patient Physical Therapy Visit Information Visit Information Visit Type Treatment Note Visit Start Time 10:16 Visit Stop Time 11:00 Total Visit Minutes 44 Visit Number 6 Number of SOCIAL MEDIA MARKETING ANALYST Visits 0 Evaluation Information Evaluation Date 05/23/22 PT-OP-B Current Condition Start: 05/23/22 12:14 Freq: Status: Active Protocol: Document 05/23/22 10:30 DCW (Rec: 05/23/22 12:34 DCW [id number]) Current Condition History of Current Condition Onset Date Four month history Current Complaints R ankle pain, R forearm/elbow pain, left shoulder pain History of Current Condition Pt is a very active 42 year old male presenting with myriad complaints of various body parts. Biggest complaint at the moment is continued right lateral ankle pain following a fall and ankle sprain four months ago. Pt reported intense pain at the time, and required use of crutches for a while to walk around. Has improved since then, he is able to do most activities, but still gets increased pain with lateral movements or when standing sideways on a hill so his ankle is being forced into inversion. Second complaint is right forearm and elbow pain that began 3-4 months ago after carrying a kayak for an extended period of time. Pt has continuing pain with most repetitive wrist and finger extension motions. Pain is located mainly at lateral epicondyle, but can go through his lateral forearm. Lastly, pt complains of a ~25 year old left shoulder injury, causes difficulty lifting his arm up to the side and overhead, results occasionally with pain and weakness. All of these injuries limit his ability to perform expected job activities while working at [employer], which requires him to be very active and participate in lifting and carrying. Treatment Goals Patient/Caregiver Goals Improve ability to participate in work activities pain-free. Personal Factors Other Personal Factors That May Effect HTN, Depression, Tourette Therapy/Recovery syndrome PT-OP-C Subjective Start: 05/23/22 12:14 Freq: Status: Active Protocol: Document 06/27/22 10:16 DCW (Rec: 06/27/22 11:04 DCW [id number]) OP-PT Subjective Patient Comments Patient Comments I'm doing well. My injuries are feeling good, I'm not doing anything crazy at work right now. PT-OP-F Manual Assessment Start: 05/23/22 12:14 Freq: Status: Active Protocol: Document 05/23/22 10:30 DCW (Rec: 05/23/22 12:34 DCW [id number]) Manual Assessments Other Manual Assessments Other Manual Assessments Increased tone in right lateral calf, right lateral forearm. Tenderness to palpation specifically at R ATF ligament in ankle and lateral epicondyle/common extensor tendon. PT-OP-K Range of Motion Start: 05/23/22 12:14 Freq: Status: Active Protocol: Document 05/23/22 10:30 DCW (Rec: 05/23/22 12:34 DCW [id number]) Ankle and Foot Goniometric Range of Motion Ankle and Foot Right Active Testing Position Sitting Dorsiflexion with Knee Flexed 0 Dorsiflexion with Knee Extended 0 Plantarflexion 60 Inversion 38 Eversion 21 Left Active Testing Position Sitting Dorsiflexion with Knee Flexed 8 Dorsiflexion with Knee Extended 0 Plantarflexion 60 Inversion 43 Eversion 22 PT-OP-L Special Tests Start: 05/23/22 12:14 Freq: Status: Active Protocol: Document 05/23/22 10:30 DCW (Rec: 05/23/22 12:34 DCW [id number]) Special Tests Shoulder Special Tests Painful Arc Test Results Positive R Thompson Meño Impingement Test Results Positive R Empty Can Test Results Negative Drop Arm Rotator Cuff Test Results Negative Elbow Special Tests Varus- 25 Degrees Test Results Negative Valgus- 25 Degrees Test Results Negative Medial Epicondylitis Test Results Negative Lateral Epicondylitis Flexed Test Results Positive R Lateral Epicondylitis Extended Test Results Positive R Foot/Ankle Special Tests Les Test ER-15 Degrees Test Results Negative Post Tibiotalor Subluxation Test Results Negative Peroneal Subluxation Test Results Negative Anterior Draw Test Results Negative PT-OP-M Strength Start: 05/23/22 12:14 Freq: Status: Active Protocol: Document 05/23/22 10:30 DCW (Rec: 05/23/22 12:34 DCW [id number]) Wrist Strength Wrist Manual Muscle Testing Right Flexion (C7) 5 Normal Extension (C6) 4 Good Ulnar Deviation 5 Normal Radial Deviation 4 Good Comments Pain with Ext and RD Ankle/Foot Strength Ankle and Foot Manual Muscle Testing Right Dorsiflexion (L4) 4+ Good+ Plantarflexion (S1) 4+ Good+ Inversion 5 Normal Eversion (S1) 4 Good Comments Increased pain with resisted right ankle eversion PT-OP-Q Treatments Start: 05/23/22 12:14 Freq: Status: Active Protocol: Document 06/27/22 10:16 DCW (Rec: 06/27/22 11:04 DCW [id number]) Gym Equipment Shuttle Balance Red Details DF/PF, SLS, Staggered, Lateral Weight shift Manual Therapy Treatment Soft Tissue Mobilization Common Extenson Tendon Body Location Common Extensor Tendon Mobilization Type Cross-Friction,Myofascial Release,Sustained Pressure, Other Intensity/Depth Moderate Body Position Sitting Comments Manual gentle cross friction and pressure MWM wrist flex/ ext/pron/sup. Pt states doing at home and helps lessen tension in elbow. Joint Mobilizations ankle Joint R Direction calcaneal med/ lat, MTP med/ lat, talocrual AP Grade III Comments good response painfree Neuro Re-Education Treatment Balance Activities BAPS Details DF/PF, Inv/Ev, CW/CWW Comments Lv 5 Foam Stance Details SLS RLE Surface Balance pod Comments cued postural alignment, core/ scap complex engagement, knee with foot alignment PT-OP-R Modalities Start: 05/23/22 12:14 Freq: Status: Active Protocol: Document 06/27/22 10:16 DCW (Rec: 06/27/22 11:04 DCW [id number]) Iontophoresis Treatment R Lateral Epicondyle Treatment Medication Dexamethasone Medication Amount (mL) (ml) 1.0 Medication Dosage 4 mg/mL Treatment Polarity Negative to Negative Treatment Duration (minutes) 4 Patient Tolerance Good PT-OP-T Assessment and Plan Start: 05/23/22 12:14 Freq: Status: Active Protocol: Document 06/27/22 10:16 DCW (Rec: 06/27/22 11:04 DCW [id number]) Physical Therapy Assessment Impairments Impairments Functional Activities, Functional Mobility,Pain,Soft Tissue Mobility,Strength,Tone Goals Three Impairment Pt has difficulty performing job functions due to forearm and elbow pain Natural Science Curator Goal (LTG) Pt to report return to normal work activities, such as carrying heavy items and chopping wood, without causing pain in his right elbow. LTG Duration 07/23/22 Two Impairment Pt experiences increased pain in right ankle ambulating on uneven surfaces Senior Living Goal (LTG) Pt to demonstrate ability to walk on trails and other uneven surfaces with no right ankle pain by improving ankle strength and stability LTG Duration 07/23/22 One Impairment Pt does not have an appropriate home exercise program Short Term Goal (STG) Pt to be [id number] and compliant with an appropriate HEP STG Duration 06/22/22 Assessment Summary Assessment Pt showing very good progress so far, noticeable decrease in swelling and inflammation along lateral epicondyle, improving stability in ankle. Physical Therapy Plan Frequency and Duration Frequency of Treatment 1-2x/week Plan of Care Start Date 05/23/22 Plan of Care End Date 07/23/22 Therapeutic Interventions Therapeutic Interventions Home Exercise Program,Joint Mobilizations,Manual Therapy, Patient/Caregiver Education, Self-Care/Home Management,Soft Tissue Mobilization, Therapeutic Activities, Therapeutic Exercises Modalities Cold Pack/Ice Massage,Electric Stimulation,Hot Packs, Infrared Therapy,Iontophoresis ,Ultrasound Other Therapeutic Interventions Iontophoresis /c Dexamethasone , 4 mg/mL Next Visit Focus/Plan Next Note Type Treatment Note Next Visit Plan REcheck if able to progress SLS previous HEP POC: Continue to challenge ankle stability with balance challenges, increase ankle strengthening, assess effectiveness of Ionto
--- NOTE | 2022-07-21 10:16 | PT.OTN ---
Current Diagnoses Impingement syndrome of unspecified shoulder (07/21/22) Lateral epicondylitis, right elbow (07/21/22) Sprain of unspecified ligament of right ankle, initial encounter (07/21/22) Sprain of unspecified ligament of right ankle, subsequent encounter (07/21/22) Physical Therapy Treatment Note PT-OP-A Visit Information Start: 05/23/22 12:14 Freq: Status: Active Protocol: Document 07/21/22 09:45 DCW (Rec: 07/21/22 10:16 DCW [id number]) Out-Patient Physical Therapy Visit Information Visit Information Visit Type Discharge Summary Visit Start Time 09:45 Visit Stop Time 10:10 Total Visit Minutes 25 Visit Number 7 Number of REAL ESTATE ACCOUNTANT Visits 0 Evaluation Information Evaluation Date 05/23/22 PT-OP-B Current Condition Start: 05/23/22 12:14 Freq: Status: Active Protocol: Document 05/23/22 10:30 DCW (Rec: 05/23/22 12:34 DCW [id number]) Current Condition History of Current Condition Onset Date Four month history Current Complaints R ankle pain, R forearm/elbow pain, left shoulder pain History of Current Condition Pt is a very active 42 year old male presenting with myriad complaints of various body parts. Biggest complaint at the moment is continued right lateral ankle pain following a fall and ankle sprain four months ago. Pt reported intense pain at the time, and required use of crutches for a while to walk around. Has improved since then, he is able to do most activities, but still gets increased pain with lateral movements or when standing sideways on a hill so his ankle is being forced into inversion. Second complaint is right forearm and elbow pain that began 3-4 months ago after carrying a kayak for an extended period of time. Pt has continuing pain with most repetitive wrist and finger extension motions. Pain is located mainly at lateral epicondyle, but can go through his lateral forearm. Lastly, pt complains of a ~25 year old left shoulder injury, causes difficulty lifting his arm up to the side and overhead, results occasionally with pain and weakness. All of these injuries limit his ability to perform expected job activities while working at [employer], which requires him to be very active and participate in lifting and carrying. Treatment Goals Patient/Caregiver Goals Improve ability to participate in work activities pain-free. Personal Factors Other Personal Factors That May Effect HTN, Depression, Tourette Therapy/Recovery syndrome PT-OP-C Subjective Start: 05/23/22 12:14 Freq: Status: Active Protocol: Document 07/21/22 09:45 DCW (Rec: 07/21/22 10:16 DCW [id number]) OP-PT Subjective Patient Comments Patient Comments Pt reports that shortly after his last visit, he had a log drop on his foot at work, and was having a lot of increased pain, however has since healed up and is doing well. Pt feels like he has largely returned to prior level of function. PT-OP-F Manual Assessment Start: 05/23/22 12:14 Freq: Status: Active Protocol: Document 07/21/22 09:45 DCW (Rec: 07/21/22 10:08 DCW [id number]) Manual Assessments Other Manual Assessments Other Manual Assessments No noteable tenderness to palpation PT-OP-K Range of Motion Start: 05/23/22 12:14 Freq: Status: Active Protocol: Document 07/21/22 09:45 DCW (Rec: 07/21/22 10:08 DCW [id number]) Ankle and Foot Goniometric Range of Motion Ankle and Foot Right Active Testing Position Sitting Dorsiflexion with Knee Flexed 10 Dorsiflexion with Knee Extended 5 Plantarflexion 60 Inversion 45 Eversion 40 PT-OP-L Special Tests Start: 05/23/22 12:14 Freq: Status: Active Protocol: Document 07/21/22 09:45 DCW (Rec: 07/21/22 10:08 DCW [id number]) Special Tests Shoulder Special Tests Painful Arc Test Results Negative Thompson Meño Impingement Test Results Positive R Empty Can Test Results Negative Drop Arm Rotator Cuff Test Results Negative Elbow Special Tests Varus- 25 Degrees Test Results Negative Valgus- 25 Degrees Test Results Negative Medial Epicondylitis Test Results Negative Lateral Epicondylitis Flexed Test Results Negative Lateral Epicondylitis Extended Test Results Negative PT-OP-M Strength Start: 05/23/22 12:14 Freq: Status: Active Protocol: Document 07/21/22 09:45 DCW (Rec: 07/21/22 10:08 DCW [id number]) Wrist Strength Wrist Manual Muscle Testing Right Flexion (C7) 5 Normal Extension (C6) 5 Normal Ulnar Deviation 5 Normal Radial Deviation 5 Normal Comments tiny bit tender with Ext and RD Ankle/Foot Strength Ankle and Foot Manual Muscle Testing Right Dorsiflexion (L4) 5 Normal Plantarflexion (S1) 5 Normal Inversion 5 Normal Eversion (S1) 5 Normal PT-OP-T Assessment and Plan Start: 05/23/22 12:14 Freq: Status: Active Protocol: Document 07/21/22 09:45 DCW (Rec: 07/21/22 10:16 DCW [id number]) Physical Therapy Assessment Impairments Impairments Functional Activities, Functional Mobility,Pain,Soft Tissue Mobility,Strength,Tone Goals Three Impairment Pt has difficulty performing job functions due to forearm and elbow pain Geophysical E Logger Goal (LTG) Pt to report return to normal work activities, such as carrying heavy items and chopping wood, without causing pain in his right elbow. LTG Duration Met Two Impairment Pt experiences increased pain in right ankle ambulating on uneven surfaces Penitentiary Goal (LTG) Pt to demonstrate ability to walk on trails and other uneven surfaces with no right ankle pain by improving ankle strength and stability LTG Duration Met One Impairment Pt does not have an appropriate home exercise program Short Term Goal (STG) Pt to be independent and compliant with an appropriate HEP STG Duration Met Assessment Summary Assessment Pt current testing all WNL, no lingering effects from prior injuries. Has met all goals, returned to work with no pain or limitations. Pt agreeable to discharge at this time. Physical Therapy Plan Frequency and Duration Frequency of Treatment 1-2x/week Plan of Care Start Date 05/23/22 Plan of Care End Date 07/23/22 Therapeutic Interventions Therapeutic Interventions Home Exercise Program,Joint Mobilizations,Manual Therapy, Patient/Caregiver Education, Self-Care/Home Management,Soft Tissue Mobilization, Therapeutic Activities, Therapeutic Exercises Modalities Cold Pack/Ice Massage,Electric Stimulation,Hot Packs, Infrared Therapy,Iontophoresis ,Ultrasound Other Therapeutic Interventions Iontophoresis /c Dexamethasone , 4 mg/mL Discharge Physical Therapy Discharge Reasons Goals Met Next Visit Focus/Plan Next Note Type Discharge Summary
== END 2022-07-26 15:49 | disposition home or self-care (01) ==
LOC: PHYS 09:45
PROVIDERS: Family Provider Family Medicine; PCP Family Medicine; Referring Provider Family Medicine; Visit Provider Family Medicine
DX: S93.401D Sprain of unspecified ligament of right ankle, subsequent encounter (principal); M77.11 Lateral epicondylitis, right elbow; M75.40 Impingement syndrome of unspecified shoulder
CPT/HCPCS: 97110; 97112; 97140; 97163

== ENCOUNTER → 2023-04-18 16:29 | Outpatient (CLI) | payer OTHER, SELFPAY ==
[2023-04-18 17:29] LABS: Add Manual Diff / Slide Review NO; Basophils Absolute Auto 100 /uL (0-100); Basophils Percent Auto 1.3 % (0-2); Eosinophils Absolute Auto 800 /uL (0-450); Eosinophils Percent Auto 11.7 % (2-4); Hematocrit 42.5 % (41-53); Hemoglobin 14.1 g/dL (13.5-17.5); Lymphocytes Absolute Auto 2400 /uL (1100-4500); Lymphocytes Percent Auto 34.2 % (25-40); Mean Corpuscular HGB Conc 33.3 % (30-36); Mean Corpuscular Hemoglobin 28.7 PG (26-34); Mean Corpuscular Volume 86.4 fL (80-100); Monocytes Absolute Auto 600 /uL (0-900); Monocytes Percent Auto 8.9 % (3-14); Neutrophils Absolute Auto 3100 /uL (1500-7000); Neutrophils Percent Auto 43.9 % (50-75); Platelet Count 238 X10^3/uL (150-400); Red Blood Cell Count 4.92 X10^6/uL (4.5-5.9); Red Cell Distribution Width 14.5 % (11.6-14.8)
[2023-04-18 17:41] LABS: Alanine Aminotransferase 25 IU/L (<50); Albumin 4.3 g/dL (3.5-5.0); Albumin Globulin Ratio 1.3 (1.0-2.8); Alkaline Phosphatase 54 U/L (38-126); Aspartate Aminotransferase 23 IU/L (17-59); BUN Creatinine Ratio 25.9 (6-22); Bilirubin Total 0.6 mg/dL (0.2-1.3); Blood Urea Nitrogen 21 mg/dL (9-20); Calcium 8.8 mg/dL (8.4-10.2); Carbon Dioxide 28 mmol/L (22-32); Chloride 107 mmol/L (98-107); Estimated Glomerular Filt Rate > 60 mL/min (>60); Globulin 3.3 g/dL (1.7-4.1); Glucose 77 mg/dL (70-100); HEMOLYSIS < 15 (0-50); Potassium 4.3 mmol/L (3.4-5.1); Sodium 141 mmol/L (137-145); Total Protein 7.6 g/dL (6.3-8.2)
[2023-04-18 19:40] LABS: Appearance Urine UA CLEAR; Bilirubin Urine UA NEGATIVE (NEGATIVE); Color Urine UA YELLOW; Glucose Urine UA NEGATIVE (Negative); Ketones Urine UA TRACE (NEGATIVE); Leukocyte Esterase Urine UA NEGATIVE (NEGATIVE); Nitrite Urine UA NEGATIVE (Negative); Occult Blood Urine UA NEGATIVE (Negative); Protein Urine UA NEGATIVE (Negative); Specific Gravity Urine UA >=1.030 (1.000-1.035); Urobilinogen Urine UA 0.2 E.U./dL (0.2)
[2023-04-18 21:08] LABS: Urine N gonorrhoeae NOT DETECTED
[2023-04-18 21:09] LABS: Urine Chlamydia NOT DETECTED
[2023-04-19 16:24] LABS: HIV 1 & 2 Ab/Ag 4th Gen Combo NEGATIVE (NEGATIVE); Hep C Virus Ab w/Reflex Quant NEGATIVE s/c (NEGATIVE)
[2023-04-20 03:37] LABS: RPR Screen Non Reactive (Non Reactive)
[2023-04-20 04:27] LABS: Hepatitis B Core AB w/Reflex Negative (Negative)
== END ==
LOC: LAB 16:31
PROVIDERS: Family Provider Family Medicine; PCP Family Medicine; Referring Provider Physician Assistant; Visit Provider Physician Assistant
DX: Z72.51 High risk heterosexual behavior (principal); Z11.3 Encounter for screening for infections with a predominantly sexual mode of transmission
CPT/HCPCS: 36415; 80053; 81003; 85025; 86592; 86704; 86803; 87389; 87491; 87591

== ENCOUNTER → 2023-07-26 11:43 | Outpatient (CLI) | payer OTHER, SELFPAY ==
[2023-07-26 13:28] LABS: Alanine Aminotransferase 44 IU/L (<50); Albumin 4.7 g/dL (3.5-5.0); Albumin Globulin Ratio 1.5 (1.0-2.8); Alkaline Phosphatase 60 U/L (38-126); Aspartate Aminotransferase 34 IU/L (17-59); BUN Creatinine Ratio 28.9 (6-22); Blood Urea Nitrogen 26 mg/dL (9-20); Calcium 9.3 mg/dL (8.4-10.2); Carbon Dioxide 28 mmol/L (22-32); Chloride 103 mmol/L (98-107); Estimated Glomerular Filt Rate > 60 mL/min (>60); Globulin 3.1 g/dL (1.7-4.1); Glucose 85 mg/dL (70-100); HEMOLYSIS < 15 (0-50); Potassium 4.3 mmol/L (3.4-5.1); Sodium 137 mmol/L (137-145); Total Protein 7.8 g/dL (6.3-8.2)
[2023-07-26 14:31] LABS: Urine N gonorrhoeae NOT DETECTED
[2023-07-26 14:51] LABS: Urine Chlamydia NOT DETECTED
[2023-07-26 17:28] LABS: Hepatitis B Surface Antigen NEGATIVE s/c (NEGATIVE)
[2023-07-26 17:46] LABS: HIV 1 & 2 Ab/Ag 4th Gen Combo NEGATIVE (NEGATIVE)
== END ==
PROVIDERS: Family Provider Family Medicine; PCP Family Medicine; Referring Provider Physician Assistant; Visit Provider Physician Assistant
DX: Z11.3 Encounter for screening for infections with a predominantly sexual mode of transmission (principal); Z79.899 Other long term (current) drug therapy; Z72.53 High risk bisexual behavior
CPT/HCPCS: 36415; 80053; 87340; 87389; 87491; 87591

== ENCOUNTER 2024-01-08 10:45 | Outpatient (RCR) | payer OTHER, SELFPAY ==
--- NOTE | 2023-12-04 16:58 | PT.OIE ---
Current Diagnoses Stiffness of right hip, not elsewhere classified (12/04/23) Strain of muscle, fascia and tendon of right hip, subsequent encounter (12/04/23) Past Medical History Acne (~1994) Benign essential HTN Depression External hemorrhoids Greater trochanteric bursitis of both hips Herpes (~2014) Hyperlipidemia Inflammatory acne Insomnia Preventative health care Skin lesions, generalized Strain of right hip Tourette syndrome (~2000) Vegan diet Visit Care Team Role Provider Type Evangelina Nava DO Family Provider Physician Specialty: Family Practice Address: [address] [place] [address], [address], [place], [facility] Email: [email or web address] Darius Hoffman DO Attending Provider Physician Primary Care Provider Referring Provider Specialty: [facility] Address: [address] [place] [address], [id number] Email: [email or web address] Physical Therapy Initial Evaluation PT-OP-A Visit Information Start: 11/20/23 19:01 Freq: Status: Active Protocol: Document 12/04/23 14:37 LRN (Rec: 12/04/23 16:53 LRN [id number]) Out-Patient Physical Therapy Visit Information Visit Information Visit Type Initial Evaluation Visit Start Time 14:37 Visit Stop Time 15:43 Visit Number / Evaluation Information Evaluation Date 12/04/23 Precautions Precautions PMH: hypertension (pt reports not consistenly controlled), depression PT-OP-B Current Condition Start: 11/20/23 19:01 Freq: Status: Active Protocol: Document 12/04/23 14:37 LRN (Rec: 12/04/23 16:53 LRN [id number]) Current Condition History of Current Condition Onset Date 9 months ago Current Complaints R hip pain workening with activity. History of Current Condition Pt states he has been diagnosed with R hip bursitis that is ongoing that has gotten better and worse through time. States he had discomfort from intercourse when in R sidelie, the day his pain started. He denies difficulties with urinating or deficating. 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 Second onset of R hip pain was ~ 3-4 months ago, was off work and got a cortisone injection 2x in hip and each time was helpful but 2nd time not as helpful. Work caused reoccurance of hip pain; therefore he has had to quit work and is not getting any financial assistance for being off work. States he can't stand for any length of time. Currently no daily pain at rest, has discomfort with walking. If he uses his R leg athletically he fells a deep odd irritation (same as he felt at beginning of occurance), then sudden onset of 9/10 pain. He states he doesn't know his limits, but knows if he walks a fair amount through his day, he experiences pain so he stops. If he works, he has pain the next day. States Dr. Darius Hoffman (who gave his first injection) says he can have more collagen. States he has trochanteric bursitis. States referring physician gave him leg ex's to do at home, he did a little and slowly got better, then worse, but didn't keep doing them; therefore physical therapy was recommended. Mid back injury lifting a piano 9 yrs ago, and hasn't been able to sit or lean back very well since. Prior Treatments and Tests Pt reports no imaging. Treatment Goals Patient/Caregiver Goals Pt goals: - Wants to be able to work, move, go sailing and do activities. - Walk into and grocery store and carry 1-2 light sacks without pain. - Be able to stand to do dishes. - HEP Personal Factors Other Personal Factors That May Effect Chronic R hip burisits for Therapy/Recovery past 9 months. Out of work due to R hip pain. PT-OP-C Subjective Start: 11/20/23 19:01 Freq: Status: Active Protocol: Document 12/04/23 14:37 LRN (Rec: 12/04/23 16:53 LRN [id number]) Patient Questionnaires Lower Extremity Functional Scale LEFS Score 32 LEFS Impairment 40 to 59% Impaired (Score 32- 47) OP-PT Pain Assessment Pain Assessment Grid Paper Pain Assessment Grid Completed Yes Location R hip Pain Location Details R lateral hip posterior to greater trochanter Description- Other Pain ranges 0-9/10. Today minimal Frequency Intermittent Pain Aggravating Factors Activity,Exercise,Standing, Walking Other Pain Aggravating Factors Lying on R side. Pain Alleviating Factors Cold PT-OP-G Mobility & Gait Start: 11/20/23 19:01 Freq: Status: Active Protocol: Document 12/04/23 14:37 LRN (Rec: 12/04/23 16:53 LRN [id number]) OP Gait Assessment Gait Gait Assistance Required: Independent Assistive Devices Assistive Device None PT-OP-J Posture/Palpation/Skin Start: 11/20/23 19:01 Freq: Status: Active Protocol: Document 12/04/23 14:37 LRN (Rec: 12/04/23 16:53 LRN [id number]) Posture Evaluation Position Standing Head/C-Spine Posture Forward Head Arm Posture (L) Internally Rotated,(R) Internally Rotated Pelvis Posture (L) PSIS Inferior Hip Posture (R) Externally Rotated Comments Posture Comments Straightened upper T/S, R PSIS is shifted fwd, atrophy of R TFL. Palpation Assessment Location R hip Palpation Location Posterior to greater trochanter Palpation Findings Tenderness Palpation Details Decreased tone of R TFL. PT-OP-K Range of Motion Start: 11/20/23 19:01 Freq: Status: Active Protocol: Document 12/04/23 14:37 LRN (Rec: 12/04/23 16:53 LRN [id number]) Lumbar Spine Range of Motion Lumbar Spine Active Degrees Testing Position Standing Flexion 80 Extension 20 Rotation Left 35 Rotation Right 40 Lateral Flexion Left 30 Lateral Flexion Right 20 Hip Goniometric Range of Motion Hip Right Passive Testing Position Supine Flexion w/Knee Flexed 136 Straight Leg Raise 55 Abduction 27 Internal Rotation 25 External Rotation 55 Comments SLR pain is anterior distal thigh With HS stretch, ankle DF caused tension in posterior lower leg. Hip AD is 20 deg's Left Passive Testing Position Supine Flexion w/Knee Flexed 136 Straight Leg Raise 55 Abduction 30 Internal Rotation 25 External Rotation 55 Comments SLR pain is anterior distal thigh. With HS stretch, ankle DF caused tension in anterior knee. Hip AD is 20 deg's Knee Goniometric Range of Motion Knee Right Patient Position Supine Flexion Active (degrees) 142 Extension Active (degrees) 0 Left Patient Position Supine Flexion Active (degrees) 142 Extension Active (degrees) 0 PT-OP-M Strength Start: 11/20/23 19:01 Freq: Status: Active Protocol: Document 12/04/23 14:37 LRN (Rec: 12/04/23 16:53 LRN [id number]) Hip Strength Hip Manual Muscle Testing Right Comments Strength is 5/5. Testing elicited no hip pain. Left Comments Strength is 5/5. PT-OP-Q Treatments Start: 11/20/23 19:01 Freq: Status: Active Protocol: Document 12/04/23 14:37 LRN (Rec: 12/04/23 16:53 LRN [id number]) Manual Therapy Treatment Consent Patient gave verbal consent for manual Yes treatment Self-Care/Home Management Treatment Education Other Education Discussed at length results of evaluation (20'), goals, treatment, and plan of care ( POC) with pt, attendance/cx/ dns policy; pt agreeable to evaluation, goals, treatment, attendance/cx/dns policy and POC. PT-OP-T Assessment and Plan Start: 11/20/23 19:01 Freq: Status: Active Protocol: Document 12/04/23 14:37 LRN (Rec: 12/04/23 16:53 LRN [id number]) Physical Therapy Assessment Rehab Potential Rehabilitation Potential Fair Evaluation Complexity Number of Personal Factors/Comorbidities 1-2 Impairments Impairments Activity Tolerance,Functional Activities,Pain,ROM,Soft Tissue Mobility Goals Three Impairment Pt limited in function (LEFS score 32) due to R hip pain. Short Term Goal (STG) Pt will be educated and demonstrated knowledge of proper body mechanics for ADLs w/o onset of R hip pain. STG Duration 12/14/23 Lithograph Printer Goal (LTG) Improve tolerance to functional activities with pt able to tolerate work and general activities. LTG Duration 02/01/24 Two Impairment R hip pain limiting ability to walk while carrying groceries Short Term Goal (STG) Improve R hip strength/ endurance with ability to walk into a grocery store and carry 1-2 light grocery sacks without pain. STG Duration 01/04/24 Fci Goal (LTG) Improve R hip strength to improve tolerance to static standing to be able to do dishes. LTG Duration 02/01/24 One Impairment Pt lacks appropriate self care HEP. Short Term Goal (STG) Pt will be educated in proper body mechanics for ADLs, proper sitting/standing posture with focus on pelvic postioning. STG Duration 12/14/23 Lithograph Printer Goal (LTG) Pt will be independent in an effective self care HEP for hip/core/knee strengthening and hip AD, PSLR mobility ex's . LTG Duration 02/01/24 Assessment Summary Assessment The pt is a 43 yo male who attends with history of R trochanteric bursitis diagnosis with treatments of 2 cortisone injections that was the most helpful on the first injection. The pt lately has been doing very well and has been able to walk with very little discomfort and reports he has not had a lot of pain, except his standing tolerance is very limited. I was not able to reproduce his R hip pain today. He has limited R hip AD mobility and appears to have atrophy of his TFL and has an anterior shifted R pelvis (in standing). He has tenderness of the posterior aspect of the R greater trochanter, indicating possible gluteus medius/ joselin involvement. The pt has limited PSLR bilaterally ( 50 deg's) prior to c/o anterior knee pain (?possible poor patellar tracking or L/S dys). He has L sided L3, L4 sharp pain with PA glide of tono same spinous processess. The pt will benefit from skilled physical therapy for hip mobility and strengthening ex's along with core stabilization, neural glides, then to reduce pain with modalities, manual therapy. He is appropriate for pt education for HEP, posturing/ positioning, body mechanics training and home modalities for pain. Physical Therapy Plan Frequency and Duration Frequency of Treatment 2x/Week Duration of treatment (weeks) 8 Plan of Care Start Date 12/04/23 Plan of Care End Date 02/01/24 Therapeutic Interventions Therapeutic Interventions Balance Training,Gait Training ,Home Exercise Program,Joint Mobilizations,Manual Therapy, Neuromuscular Re-education, Self-Care/Home Management,Soft Tissue Mobilization,Taping, Therapeutic Activities, Therapeutic Exercises Modalities Cold Pack/Ice Massage,Electric Stimulation,Hot Packs, Iontophoresis,Ultrasound Other Therapeutic Interventions 4 mg/ml Dexamethasone with Phosphate. Next Visit Focus/Plan Next Note Type Treatment Note Next Visit Plan Check DTR's, sensation, Special test (lumbar traction, Trendelenburg, patellar tracking, SIJ dys), gait, stairs. Start: TFL gentle stretch (good core stability), isometric GM strengthening, walking, modalities (US). Education hot/cold treatment. POC: Therapeutic Ex ( strengthening/ROM), Therapeutic Activity (transfer training), manual therapy ( STM/JMT), Gait & Balance training, Pt Education (HEP, Edema and pain mgmt).
--- NOTE | 2023-12-06 17:38 | PT.OTN ---
Current Diagnoses Stiffness of right hip, not elsewhere classified (12/06/23) Strain of muscle, fascia and tendon of right hip, subsequent encounter (12/06/23) Physical Therapy Treatment Note PT-OP-A Visit Information Start: 11/20/23 19:01 Freq: Status: Active Protocol: Document 12/06/23 14:38 SW (Rec: 12/06/23 15:33 SW [id number]) Out-Patient Physical Therapy Visit Information Visit Information Visit Type Treatment Note Visit Start Time 14:35 Visit Stop Time 15:13 Visit Number 2/6 Number of TODDLER GUIDE Visits 1 Precautions Precautions PMH: hypertension (pt reports not consistenly controlled), depression PT-OP-B Current Condition Start: 11/20/23 19:01 Freq: Status: Active Protocol: Document 12/04/23 14:37 LRN (Rec: 12/04/23 16:53 LRN [id number]) Current Condition History of Current Condition Onset Date 9 months ago Current Complaints R hip pain workening with activity. History of Current Condition Pt states he has been diagnosed with R hip bursitis that is ongoing that has gotten better and worse through time. States he had discomfort from intercourse when in R sidelie, the day his pain started. He denies difficulties with urinating or deficating. 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 Second onset of R hip pain was ~ 3-4 months ago, was off work and got a cortisone injection 2x in hip and each time was helpful but 2nd time not as helpful. Work caused reoccurance of hip pain; therefore he has had to quit work and is not getting any financial assistance for being off work. States he can't stand for any length of time. Currently no daily pain at rest, has discomfort with walking. If he uses his R leg athletically he fells a deep odd irritation (same as he felt at beginning of occurance), then sudden onset of 9/10 pain. He states he doesn't know his limits, but knows if he walks a fair amount through his day, he experiences pain so he stops. If he works, he has pain the next day. States Dr. Darius Hoffman (who gave his first injection) says he can have more collagen. States he has trochanteric bursitis. States referring physician gave him leg ex's to do at home, he did a little and slowly got better, then worse, but didn't keep doing them; therefore physical therapy was recommended. Mid back injury lifting a piano 9 yrs ago, and hasn't been able to sit or lean back very well since. Prior Treatments and Tests Pt reports no imaging. Treatment Goals Patient/Caregiver Goals Pt goals: - Wants to be able to work, move, go sailing and do activities. - Walk into and grocery store and carry 1-2 light sacks without pain. - Be able to stand to do dishes. - HEP Personal Factors Other Personal Factors That May Effect Chronic R hip burisits for Therapy/Recovery past 9 months. Out of work due to R hip pain. PT-OP-C Subjective Start: 11/20/23 19:01 Freq: Status: Active Protocol: Document 12/06/23 14:38 SW (Rec: 12/06/23 15:33 SW [id number]) OP-PT Subjective Patient Comments Patient Comments Pt reports had to push motorcycle, denies pain after, but felt it. Heron good after initial eval, no pain. Pt reports awkward weight shifting and stances to offload the right side, not sure if that may be contributing. PT-OP-G Mobility & Gait Start: 11/20/23 19:01 Freq: Status: Active Protocol: Document 12/04/23 14:37 LRN (Rec: 12/04/23 16:53 LRN [id number]) OP Gait Assessment Gait Gait Assistance Required: Independent Assistive Devices Assistive Device None PT-OP-J Posture/Palpation/Skin Start: 11/20/23 19:01 Freq: Status: Active Protocol: Document 12/04/23 14:37 LRN (Rec: 12/04/23 16:53 LRN [id number]) Posture Evaluation Position Standing Head/C-Spine Posture Forward Head Arm Posture (L) Internally Rotated,(R) Internally Rotated Pelvis Posture (L) PSIS Inferior Hip Posture (R) Externally Rotated Comments Posture Comments Straightened upper T/S, R PSIS is shifted fwd, atrophy of R TFL. Palpation Assessment Location R hip Palpation Location Posterior to greater trochanter Palpation Findings Tenderness Palpation Details Decreased tone of R TFL. PT-OP-K Range of Motion Start: 11/20/23 19:01 Freq: Status: Active Protocol: Document 12/04/23 14:37 LRN (Rec: 12/04/23 16:53 LRN [id number]) Lumbar Spine Range of Motion Lumbar Spine Active Degrees Testing Position Standing Flexion 80 Extension 20 Rotation Left 35 Rotation Right 40 Lateral Flexion Left 30 Lateral Flexion Right 20 Hip Goniometric Range of Motion Hip Right Passive Testing Position Supine Flexion w/Knee Flexed 136 Straight Leg Raise 55 Abduction 27 Internal Rotation 25 External Rotation 55 Comments SLR pain is anterior distal thigh With HS stretch, ankle DF caused tension in posterior lower leg. Hip AD is 20 deg's Left Passive Testing Position Supine Flexion w/Knee Flexed 136 Straight Leg Raise 55 Abduction 30 Internal Rotation 25 External Rotation 55 Comments SLR pain is anterior distal thigh. With HS stretch, ankle DF caused tension in anterior knee. Hip AD is 20 deg's Knee Goniometric Range of Motion Knee Right Patient Position Supine Flexion Active (degrees) 142 Extension Active (degrees) 0 Left Patient Position Supine Flexion Active (degrees) 142 Extension Active (degrees) 0 PT-OP-M Strength Start: 11/20/23 19:01 Freq: Status: Active Protocol: Document 12/04/23 14:37 LRN (Rec: 12/04/23 16:53 LRN [id number]) Hip Strength Hip Manual Muscle Testing Right Comments Strength is 5/5. Testing elicited no hip pain. Left Comments Strength is 5/5. PT-OP-Q Treatments Start: 11/20/23 19:01 Freq: Status: Active Protocol: Document 12/06/23 14:38 SW (Rec: 12/06/23 15:33 SW [id number]) Therapeutic Exercises Supine Exercises TFL stretch Supine Exercise Name gentle TFL stretch Comments initially had good tolerance, then felt a twinge, d/c Glute Isometric Supine Exercise Name Isometric hold (HEP issued, pt denied HO) Side bilateral Resistance Lvl 1 TB Reps/Minutes 2x30 Comments hooklying, good tolerance pain free Gait Training Gait Activity 5' ambulation Description walking around gym loop Device Used No AD Self-Care/Home Management Treatment Education Patient Education Home Exercise Program,Pain Management,Posture Caregiver Education Pt education on modalities ( hot,cold, US), pt education on progressions/regressions in PT, Pt education on sit/stand posture (HEP issued) PT-OP-R Modalities Start: 11/20/23 19:01 Freq: Status: Active Protocol: Document 12/06/23 14:38 SW (Rec: 12/06/23 15:33 SW [id number]) Ultrasound Therapy Treatment Pulsed US Patient Position Sidelying Coupling Medium Ultrasound Gel Applicator Size (cm2) 5 Frequency Setting (mHz) 1 Mode Setting Pulsed Duty Cycle 20% Intensity Setting (w/cm2) 1 Comments x8 ' sidelying, pt consented to tx, pt draped with sheet, only tx area exposed, pt education on therapeutic effects and procedure prior to tx PT-OP-T Assessment and Plan Start: 11/20/23 19:01 Freq: Status: Active Protocol: Document 12/06/23 14:38 (Rec: 12/06/23 15:33 [id number]) Physical Therapy Assessment Goals Three Impairment Pt limited in function (LEFS score 32) due to R hip pain. Short Term Goal (STG) Pt will be educated and demonstrated knowledge of proper body mechanics for ADLs w/o onset of R hip pain. STG Duration 12/14/23 Residential Goal (LTG) Improve tolerance to functional activities with pt able to tolerate work and general activities. LTG Duration 02/01/24 Two Impairment R hip pain limiting ability to walk while carrying groceries Short Term Goal (STG) Improve R hip strength/ endurance with ability to walk into a grocery store and carry 1-2 light grocery sacks without pain. STG Duration 01/04/24 Residential Goal (LTG) Improve R hip strength to improve tolerance to static standing to be able to do dishes. LTG Duration 02/01/24 One Impairment Pt lacks appropriate self care HEP. Short Term Goal (STG) Pt will be educated in proper body mechanics for ADLs, proper sitting/standing posture with focus on pelvic postioning. 12/06/23- Initiated sitting/ standing posture (issued HEP HO) STG Duration 12/14/23 Toddler Teacher Goal (LTG) Pt will be independent in an effective self care HEP for hip/core/knee strengthening and hip AD, PSLR mobility ex's . 12/06/23- Supine Isometric hip Abd (issued HEP HO) LTG Duration 02/01/24 Assessment Summary Assessment Trialed TFL stretch this session, pt initially tolerated well then felt a twinge of pain. Ambulated x5' around clinic, x 1 instance of twinge pain in R anterolateral hip turning a corner to the left. Pt had difficulty identifying if pain was present during session. Educated patient on hot/cold/ US treatments this session. Initiated pt education on sitting/standing posture, plan to continue sitting/posture next session as able. Plan to followup on pt tolerance to US next session. Physical Therapy Plan Frequency and Duration Frequency of Treatment 2x/Week Duration of treatment (weeks) 8 Plan of Care Start Date 12/04/23 Plan of Care End Date 02/01/24 Therapeutic Interventions Therapeutic Interventions Balance Training,Gait Training ,Home Exercise Program,Joint Mobilizations,Manual Therapy, Neuromuscular Re-education, Self-Care/Home Management,Soft Tissue Mobilization,Taping, Therapeutic Activities, Therapeutic Exercises Modalities Cold Pack/Ice Massage,Electric Stimulation,Hot Packs, Iontophoresis,Ultrasound Other Therapeutic Interventions 4 mg/ml Dexamethasone with Phosphate. Next Visit Focus/Plan Next Note Type Treatment Note Next Visit Plan Check DTR's, sensation, Special test (lumbar traction, Trendelenburg, patellar tracking, SIJ dys), gait, stairs. Start: walking ( initiated 12/06/23), modalities (US). POC: Therapeutic Ex ( strengthening/ROM), Therapeutic Activity (transfer training), manual therapy ( STM/JMT), Gait & Balance training, Pt Education (HEP, Edema and pain mgmt).
--- NOTE | 2023-12-11 18:10 | PT.OTN ---
Current Diagnoses Stiffness of right hip, not elsewhere classified (12/11/23) Strain of muscle, fascia and tendon of right hip, subsequent encounter (12/11/23) Physical Therapy Treatment Note PT-OP-A Visit Information Start: 11/20/23 19:01 Freq: Status: Active Protocol: Document 12/11/23 14:43 SW (Rec: 12/11/23 15:36 SW [id number]) Out-Patient Physical Therapy Visit Information Visit Information Visit Type Treatment Note Visit Note pt may bring headphones as needed for sound sensitivity Visit Start Time 14:33 Visit Stop Time 15:13 Visit Number 3/6 Number of HVAC/R INSTRUCTOR Visits 2 Precautions Precautions PMH: hypertension (pt reports not consistenly controlled), depression PT-OP-B Current Condition Start: 11/20/23 19:01 Freq: Status: Active Protocol: Document 12/04/23 14:37 LRN (Rec: 12/04/23 16:53 LRN [id number]) Current Condition History of Current Condition Onset Date 9 months ago Current Complaints R hip pain workening with activity. History of Current Condition Pt states he has been diagnosed with R hip bursitis that is ongoing that has gotten better and worse through time. States he had discomfort from intercourse when in R sidelie, the day his pain started. He denies difficulties with urinating or deficating. 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 Second onset of R hip pain was ~ 3-4 months ago, was off work and got a cortisone injection 2x in hip and each time was helpful but 2nd time not as helpful. Work caused reoccurance of hip pain; therefore he has had to quit work and is not getting any financial assistance for being off work. States he can't stand for any length of time. Currently no daily pain at rest, has discomfort with walking. If he uses his R leg athletically he fells a deep odd irritation (same as he felt at beginning of occurance), then sudden onset of 9/10 pain. He states he doesn't know his limits, but knows if he walks a fair amount through his day, he experiences pain so he stops. If he works, he has pain the next day. States Dr. Darius Hoffman (who gave his first injection) says he can have more collagen. States he has trochanteric bursitis. States referring physician gave him leg ex's to do at home, he did a little and slowly got better, then worse, but didn't keep doing them; therefore physical therapy was recommended. Mid back injury lifting a piano 9 yrs ago, and hasn't been able to sit or lean back very well since. Prior Treatments and Tests Pt reports no imaging. Treatment Goals Patient/Caregiver Goals Pt goals: - Wants to be able to work, move, go sailing and do activities. - Walk into and grocery store and carry 1-2 light sacks without pain. - Be able to stand to do dishes. - HEP Personal Factors Other Personal Factors That May Effect Chronic R hip burisits for Therapy/Recovery past 9 months. Out of work due to R hip pain. PT-OP-C Subjective Start: 11/20/23 19:01 Freq: Status: Active Protocol: Document 12/11/23 14:43 SW (Rec: 12/11/23 15:36 SW [id number]) OP-PT Subjective Patient Comments Patient Comments Pt reports has a disability that makes certain music that is bothersome, would like to wear headphones on occasion as needed. Pt reports pain 1-2/ 10 today, first time felt pain since last session. PT-OP-G Mobility & Gait Start: 11/20/23 19:01 Freq: Status: Active Protocol: Document 12/04/23 14:37 LRN (Rec: 12/04/23 16:53 LRN [id number]) OP Gait Assessment Gait Gait Assistance Required: Independent Assistive Devices Assistive Device None PT-OP-J Posture/Palpation/Skin Start: 11/20/23 19:01 Freq: Status: Active Protocol: Document 12/04/23 14:37 LRN (Rec: 12/04/23 16:53 LRN [id number]) Posture Evaluation Position Standing Head/C-Spine Posture Forward Head Arm Posture (L) Internally Rotated,(R) Internally Rotated Pelvis Posture (L) PSIS Inferior Hip Posture (R) Externally Rotated Comments Posture Comments Straightened upper T/S, R PSIS is shifted fwd, atrophy of R TFL. Palpation Assessment Location R hip Palpation Location Posterior to greater trochanter Palpation Findings Tenderness Palpation Details Decreased tone of R TFL. PT-OP-K Range of Motion Start: 11/20/23 19:01 Freq: Status: Active Protocol: Document 12/04/23 14:37 LRN (Rec: 12/04/23 16:53 LRN [id number]) Lumbar Spine Range of Motion Lumbar Spine Active Degrees Testing Position Standing Flexion 80 Extension 20 Rotation Left 35 Rotation Right 40 Lateral Flexion Left 30 Lateral Flexion Right 20 Hip Goniometric Range of Motion Hip Right Passive Testing Position Supine Flexion w/Knee Flexed 136 Straight Leg Raise 55 Abduction 27 Internal Rotation 25 External Rotation 55 Comments SLR pain is anterior distal thigh With HS stretch, ankle DF caused tension in posterior lower leg. Hip AD is 20 deg's Left Passive Testing Position Supine Flexion w/Knee Flexed 136 Straight Leg Raise 55 Abduction 30 Internal Rotation 25 External Rotation 55 Comments SLR pain is anterior distal thigh. With HS stretch, ankle DF caused tension in anterior knee. Hip AD is 20 deg's Knee Goniometric Range of Motion Knee Right Patient Position Supine Flexion Active (degrees) 142 Extension Active (degrees) 0 Left Patient Position Supine Flexion Active (degrees) 142 Extension Active (degrees) 0 PT-OP-M Strength Start: 11/20/23 19:01 Freq: Status: Active Protocol: Document 12/04/23 14:37 LRN (Rec: 12/04/23 16:53 LRN [id number]) Hip Strength Hip Manual Muscle Testing Right Comments Strength is 5/5. Testing elicited no hip pain. Left Comments Strength is 5/5. PT-OP-Q Treatments Start: 11/20/23 19:01 Freq: Status: Active Protocol: Document 12/11/23 14:43 SW (Rec: 12/11/23 15:36 SW [id number]) Therapeutic Exercises Supine Exercises Pelvic tilts Supine Exercise Name pelvic tilts Comments cues for pelvic alignment Glute Isometric Supine Exercise Name Isometric hold (HEP) Side bilateral Resistance Lvl 1 TB Reps/Minutes 2x30, x10 Comments hooklying, good tolerance pain free Therapeutic Activity Therapeutic Activity Transfer Name Bed mobility Reps/Minutes 10' Comments transfer log roll to left side , pt education and demonstration, pt demonstration Self-Care/Home Management Treatment Education Caregiver Education Pt education on proper body mechanics for pain reducation with onset of R hip pain, demonstration and verbal education Activities Self-Care/Home Management Activities pelvic alignment, verbal education, skeletone visual education PT-OP-R Modalities Start: 11/20/23 19:01 Freq: Status: Active Protocol: Document 12/11/23 14:43 (Rec: 12/11/23 15:36 [id number]) Ultrasound Therapy Treatment Pulsed US Patient Position Sidelying Coupling Medium Ultrasound Gel Applicator Size (cm2) 10 Frequency Setting (mHz) 1 Mode Setting Pulsed Duty Cycle 20% Intensity Setting (w/cm2) 1 Comments Posterolateral R hip x8' sidelying, pt consented to tx, pt draped with sheet, only tx area exposed, pt education on therapeutic effects and procedure prior to tx, discontinued today d/t reports of discomfort, denies pain feels more like a discomfort feeling. Instructed pt to gradually increase walking as tolerated. Plan to initiate strengthening and ROM exercises next session as tolerated. PT-OP-T Assessment and Plan Start: 11/20/23 19:01 Freq: Status: Active Protocol: Document 12/11/23 14:43 (Rec: 12/11/23 15:36 [id number]) Physical Therapy Assessment Goals Three Impairment Pt limited in function (LEFS score 32) due to R hip pain. Short Term Goal (STG) Pt will be educated and demonstrated knowledge of proper body mechanics for ADLs w/o onset of R hip pain. 12/11/23: initiated, HEP HO given STG Duration 12/14/23 Shipping Assistant Goal (LTG) Improve tolerance to functional activities with pt able to tolerate work and general activities. LTG Duration 02/01/24 Two Impairment R hip pain limiting ability to walk while carrying groceries Short Term Goal (STG) Improve R hip strength/ endurance with ability to walk into a grocery store and carry 1-2 light grocery sacks without pain. STG Duration 01/04/24 Residential Goal (LTG) Improve R hip strength to improve tolerance to static standing to be able to do dishes. LTG Duration 02/01/24 One Impairment Pt lacks appropriate self care HEP. Short Term Goal (STG) Pt will be educated in proper body mechanics for ADLs, proper sitting/standing posture with focus on pelvic postioning. 12/06/23- Initiated sitting/ standing posture (issued HEP HO) 12/11/23- Continued pt education, focused on pelvic alignment education, pt demonstration, and visual explanation with skeleton STG Duration 12/14/23 Shipping Assistant Goal (LTG) Pt will be independent in an effective self care HEP for hip/core/knee strengthening and hip AD, PSLR mobility ex's . 12/06/23- Supine Isometric hip Abd (issued HEP HO), walking LTG Duration 02/01/24 Assessment Summary Assessment Session focused on Pt education toward pt goals, transfer training, and pain prevention and mechanics with activities of daily living ( issued pt HEP HO). Physical Therapy Plan Frequency and Duration Frequency of Treatment 2x/Week Duration of treatment (weeks) 8 Plan of Care Start Date 12/04/23 Plan of Care End Date 02/01/24 Therapeutic Interventions Therapeutic Interventions Balance Training,Gait Training ,Home Exercise Program,Joint Mobilizations,Manual Therapy, Neuromuscular Re-education, Self-Care/Home Management,Soft Tissue Mobilization,Taping, Therapeutic Activities, Therapeutic Exercises Modalities Cold Pack/Ice Massage,Electric Stimulation,Hot Packs, Iontophoresis,Ultrasound Other Therapeutic Interventions 4 mg/ml Dexamethasone with Phosphate. Next Visit Focus/Plan Next Note Type Treatment Note Next Visit Plan Check DTR's, sensation, Special test (lumbar traction, Trendelenburg, patellar tracking, SIJ dys), gait, stairs. Start: walking ( initiated 12/06/23), modalities (US). POC: Therapeutic Ex ( strengthening/ROM), Therapeutic Activity (transfer training), manual therapy ( STM/JMT), Gait & Balance training, Pt Education (HEP, Edema and pain mgmt).
--- NOTE | 2023-12-25 15:11 | PT.OTN ---
Current Diagnoses Stiffness of right hip, not elsewhere classified (12/25/23) Strain of muscle, fascia and tendon of right hip, subsequent encounter (12/25/23) Physical Therapy Treatment Note PT-OP-A Visit Information Start: 11/20/23 19:01 Freq: Status: Active Protocol: Document 12/25/23 09:46 SW (Rec: 12/25/23 10:44 SW [id number]) Out-Patient Physical Therapy Visit Information Visit Information Visit Type Treatment Note Visit Start Time 09:45 Visit Stop Time 10:25 Visit Number 4/6 Number of CONVEYOR TENDER CONCRETE MIXING PLANT Visits 3 Precautions Precautions PMH: hypertension (pt reports not consistenly controlled), depression PT-OP-B Current Condition Start: 11/20/23 19:01 Freq: Status: Active Protocol: Document 12/04/23 14:37 LRN (Rec: 12/04/23 16:53 LRN [id number]) Current Condition History of Current Condition Onset Date 9 months ago Current Complaints R hip pain workening with activity. History of Current Condition Pt states he has been diagnosed with R hip bursitis that is ongoing that has gotten better and worse through time. States he had discomfort from intercourse when in R sidelie, the day his pain started. He denies difficulties with urinating or deficating. 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 Second onset of R hip pain was ~ 3-4 months ago, was off work and got a cortisone injection 2x in hip and each time was helpful but 2nd time not as helpful. Work caused reoccurance of hip pain; therefore he has had to quit work and is not getting any financial assistance for being off work. States he can't stand for any length of time. Currently no daily pain at rest, has discomfort with walking. If he uses his R leg athletically he fells a deep odd irritation (same as he felt at beginning of occurance), then sudden onset of 9/10 pain. He states he doesn't know his limits, but knows if he walks a fair amount through his day, he experiences pain so he stops. If he works, he has pain the next day. States Dr. Darius Hoffman (who gave his first injection) says he can have more collagen. States he has trochanteric bursitis. States referring physician gave him leg ex's to do at home, he did a little and slowly got better, then worse, but didn't keep doing them; therefore physical therapy was recommended. Mid back injury lifting a piano 9 yrs ago, and hasn't been able to sit or lean back very well since. Prior Treatments and Tests Pt reports no imaging. Treatment Goals Patient/Caregiver Goals Pt goals: - Wants to be able to work, move, go sailing and do activities. - Walk into and grocery store and carry 1-2 light sacks without pain. - Be able to stand to do dishes. - HEP Personal Factors Other Personal Factors That May Effect Chronic R hip burisits for Therapy/Recovery past 9 months. Out of work due to R hip pain. PT-OP-C Subjective Start: 11/20/23 19:01 Freq: Status: Active Protocol: Document 12/25/23 09:46 SW (Rec: 12/25/23 10:44 SW [id number]) OP-PT Subjective Patient Comments Patient Comments Pt reports taking care of dad. Pt reports things were going well, with all things learned in PT, but lifted dad one time in a sideways movement and felt hip pain in that movement , has been in a lot of pain since, reports 3-5 pain non stop. Pt has stayed off of it and used canabis for pain up until yesterday. Pt reports dad is now in [place], and pt can now focus on recovery. Today is still sore, pain level today is around a 2. Driving with left foot, driving is not easy. Pain is in lateral hip bursa area. PT-OP-G Mobility & Gait Start: 11/20/23 19:01 Freq: Status: Active Protocol: Document 12/04/23 14:37 LRN (Rec: 12/04/23 16:53 LRN [id number]) OP Gait Assessment Gait Gait Assistance Required: Independent Assistive Devices Assistive Device None PT-OP-J Posture/Palpation/Skin Start: 11/20/23 19:01 Freq: Status: Active Protocol: Document 12/04/23 14:37 LRN (Rec: 12/04/23 16:53 LRN [id number]) Posture Evaluation Position Standing Head/C-Spine Posture Forward Head Arm Posture (L) Internally Rotated,(R) Internally Rotated Pelvis Posture (L) PSIS Inferior Hip Posture (R) Externally Rotated Comments Posture Comments Straightened upper T/S, R PSIS is shifted fwd, atrophy of R TFL. Palpation Assessment Location R hip Palpation Location Posterior to greater trochanter Palpation Findings Tenderness Palpation Details Decreased tone of R TFL. PT-OP-K Range of Motion Start: 11/20/23 19:01 Freq: Status: Active Protocol: Document 12/04/23 14:37 LRN (Rec: 12/04/23 16:53 LRN [id number]) Lumbar Spine Range of Motion Lumbar Spine Active Degrees Testing Position Standing Flexion 80 Extension 20 Rotation Left 35 Rotation Right 40 Lateral Flexion Left 30 Lateral Flexion Right 20 Hip Goniometric Range of Motion Hip Right Passive Testing Position Supine Flexion w/Knee Flexed 136 Straight Leg Raise 55 Abduction 27 Internal Rotation 25 External Rotation 55 Comments SLR pain is anterior distal thigh With HS stretch, ankle DF caused tension in posterior lower leg. Hip AD is 20 deg's Left Passive Testing Position Supine Flexion w/Knee Flexed 136 Straight Leg Raise 55 Abduction 30 Internal Rotation 25 External Rotation 55 Comments SLR pain is anterior distal thigh. With HS stretch, ankle DF caused tension in anterior knee. Hip AD is 20 deg's Knee Goniometric Range of Motion Knee Right Patient Position Supine Flexion Active (degrees) 142 Extension Active (degrees) 0 Left Patient Position Supine Flexion Active (degrees) 142 Extension Active (degrees) 0 PT-OP-M Strength Start: 11/20/23 19:01 Freq: Status: Active Protocol: Document 12/04/23 14:37 LRN (Rec: 12/04/23 16:53 LRN [id number]) Hip Strength Hip Manual Muscle Testing Right Comments Strength is 5/5. Testing elicited no hip pain. Left Comments Strength is 5/5. PT-OP-Q Treatments Start: 11/20/23 19:01 Freq: Status: Active Protocol: Document 12/25/23 09:46 SW (Rec: 12/25/23 10:44 SW [id number]) Therapeutic Exercises Supine Exercises Hip IR Supine Exercise Name Hip IR Side bilateral Resistance AROM Reps/Minutes x10 w/2 hold at end range Comments Pt sits and stands with BLE externally rotated Glute Isometric Supine Exercise Name Reviewed Side bilateral Sitting Exercises Piriformis stretch Sitting Exercise Name Figure 4 stretch Side bilateral Comments pain free stretch Standing Exercises Hip flexor Stretch Standing Exercise Name pain free Equipment Used @ wall for stability Comments cued for alignment with stretch, pt education on mm being stretched Calf stretch Standing Exercise Name Gastroc/soleus Side bilateral Reps/Minutes 2x30 Comments cued for alignment, gentle pain free stretch Other Exercises STS Other Exercise Name seated hip hinge> STS Side bilateral Resistance AROM Reps/Minutes 10 Comments strengthening, extedned time on pt edu and for proper mechanics Gait Training Gait Activity Gait Description Gait post modalities and between exercises Device Used No AD Surface stable Distance/Duration 3' Treatment Focus gait mechanics Comments cued for increased stride, glute activation, heel strike Self-Care/Home Management Treatment Education Patient Education Home Exercise Program,Posture, Safety Caregiver Education Pt eduction on lifing mechanics and safety with lifting, pt education on HEP. Encouraged pt to continue walking monitoring symtoms and continue issued HEP exercises as long as there is not an increase in pain level. Pt education on the effects of movement for healing. Activities Self-Care/Home Management Activities Continued lifting mechanics this session, emphasis on load close to body and positioning for lift. PT-OP-R Modalities Start: 11/20/23 19:01 Freq: Status: Active Protocol: Document 12/25/23 09:46 (Rec: 12/25/23 10:44 [id number]) Ultrasound Therapy Treatment Pulsed US Patient Position Sidelying Coupling Medium Ultrasound Gel Applicator Size (cm2) 10 Frequency Setting (mHz) 1 Mode Setting Pulsed Duty Cycle 20% Intensity Setting (w/cm2) 1 Comments lateral R hip just distal to greater trochanter, x8' sidelying, pt consented to tx, pt draped with sheet, only tx area exposed, pt education on therapeutic effects and procedure prior to tx. Pt requested ultrasound today, good tolerance this session, reports it feels good. PT-OP-T Assessment and Plan Start: 11/20/23 19:01 Freq: Status: Active Protocol: Document 12/25/23 09:46 SW (Rec: 12/25/23 10:44 [id number]) Physical Therapy Assessment Goals Three Impairment Pt limited in function (LEFS score 32) due to R hip pain. Short Term Goal (STG) Pt will be educated and demonstrated knowledge of proper body mechanics for ADLs w/o onset of R hip pain. 12/11/23: initiated, HEP HO given 12/25/23: Continued Pt education and execution of lift mechanics STG Duration 12/14/23 Washer Cutter Goal (LTG) Improve tolerance to functional activities with pt able to tolerate work and general activities. LTG Duration 02/01/24 Two Impairment R hip pain limiting ability to walk while carrying groceries Short Term Goal (STG) Improve R hip strength/ endurance with ability to walk into a grocery store and carry 1-2 light grocery sacks without pain. 12/25/23: walking, with emphasis on mechanics STG Duration 01/04/24 Half-Way Goal (LTG) Improve R hip strength to improve tolerance to static standing to be able to do dishes. LTG Duration 02/01/24 One Impairment Pt lacks appropriate self care HEP. Short Term Goal (STG) Pt will be educated in proper body mechanics for ADLs, proper sitting/standing posture with focus on pelvic postioning. 12/06/23- Initiated sitting/ standing posture (issued HEP HO) 12/11/23- Pelvic tilts, Continued pt education, focused on pelvic alignment education, pt demonstration, and visual explanation with skeleton 12/25/23: 1. STS (issued HEP HO) 2. Supine Hip ROM (issued HEP HO) 3. Figure 4 stretch ( issued HEP HO) 5. Gastroc/ soleus/Hip flexor stretch ( issued HEP HO) STG Duration 12/14/23 Washer Cutter Goal (LTG) Pt will be independent in an effective self care HEP for hip/core/knee strengthening and hip AD, PSLR mobility ex's . 12/06/23- Supine Isometric hip Abd (issued HEP HO), walking LTG Duration 02/01/24 Assessment Summary Assessment Pt in increased pain today, due to assisting dad with a lift, continued lifting mechanics this session. Continued ultrasound to start this session to increase cellular metabolism, promote healing, and assist with pt discomfort, pt tolerated well. Pt symptoms continue to be inconsistant today, as described by pt. Pt feels like progress was being made prior to the re occurance of pain with the improper lift. Pt reports stopped moving and rested since last session. Educated pt on importance of continueing movement and exercises as long as it is not increasing pain, and the effects of muscle activation on circulation and healing. Pt ambulated with a decreased stride with minimal foot clearance and reciprocal arm swing. Pt measured ~3 3/4 cm with wall test for DF, initiated Calf stretches this session and hip flexor stretch this this session for carryover into walking mechanics and ROM, good tolerance, educated pt on pain free stretch and proper alignment with stretches. Inititiated functional strengthening today with STS, extended time for correct mechanics. Plan to followup on tolerance and adherance to HEP and progress strength as able next session, continue gait, and initiate balance. Physical Therapy Plan Frequency and Duration Frequency of Treatment 2x/Week Duration of treatment (weeks) 8 Plan of Care Start Date 12/04/23 Plan of Care End Date 02/01/24 Therapeutic Interventions Therapeutic Interventions Balance Training,Gait Training ,Home Exercise Program,Joint Mobilizations,Manual Therapy, Neuromuscular Re-education, Self-Care/Home Management,Soft Tissue Mobilization,Taping, Therapeutic Activities, Therapeutic Exercises Modalities Cold Pack/Ice Massage,Electric Stimulation,Hot Packs, Iontophoresis,Ultrasound Other Therapeutic Interventions 4 mg/ml Dexamethasone with Phosphate. Next Visit Focus/Plan Next Note Type Treatment Note Next Visit Plan Check DTR's, sensation, Special test (lumbar traction, Trendelenburg, patellar tracking, SIJ dys), gait, stairs. Start: walking ( initiated 12/06/23), modalities (US). POC: Therapeutic Ex ( strengthening/ROM)- HEP in goals, Therapeutic Activity ( transfer training)- initiated plan to continue prn, manual therapy (STM/JMT), Gait & Balance training, Pt Education (HEP).
--- NOTE | 2024-01-01 15:53 | PT.OTN ---
Current Diagnoses Stiffness of right hip, not elsewhere classified (01/01/24) Strain of muscle, fascia and tendon of right hip, subsequent encounter (01/01/24) Physical Therapy Treatment Note PT-OP-A Visit Information Start: 11/20/23 19:01 Freq: Status: Active Protocol: Document 01/01/24 09:51 LRN (Rec: 01/01/24 10:40 LRN [id number]) Out-Patient Physical Therapy Visit Information Visit Information Visit Type Progress Note Visit Start Time 09:51 Visit Stop Time 10:38 Visit Number 5/6 Evaluation Information Evaluation Date 12/04/23 Precautions Precautions PMH: hypertension (pt reports not consistenly controlled), depression PT-OP-B Current Condition Start: 11/20/23 19:01 Freq: Status: Active Protocol: Document 12/04/23 14:37 LRN (Rec: 12/04/23 16:53 LRN [id number]) Current Condition History of Current Condition Onset Date 9 months ago Current Complaints R hip pain workening with activity. History of Current Condition Pt states he has been diagnosed with R hip bursitis that is ongoing that has gotten better and worse through time. States he had discomfort from intercourse when in R sidelie, the day his pain started. He denies difficulties with urinating or deficating. 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 Second onset of R hip pain was ~ 3-4 months ago, was off work and got a cortisone injection 2x in hip and each time was helpful but 2nd time not as helpful. Work caused reoccurance of hip pain; therefore he has had to quit work and is not getting any financial assistance for being off work. States he can't stand for any length of time. Currently no daily pain at rest, has discomfort with walking. If he uses his R leg athletically he fells a deep odd irritation (same as he felt at beginning of occurance), then sudden onset of 9/10 pain. He states he doesn't know his limits, but knows if he walks a fair amount through his day, he experiences pain so he stops. If he works, he has pain the next day. States Dr. Darius Hoffman (who gave his first injection) says he can have more collagen. States he has trochanteric bursitis. States referring physician gave him leg ex's to do at home, he did a little and slowly got better, then worse, but didn't keep doing them; therefore physical therapy was recommended. Mid back injury lifting a piano 9 yrs ago, and hasn't been able to sit or lean back very well since. Prior Treatments and Tests Pt reports no imaging. Treatment Goals Patient/Caregiver Goals Pt goals: - Wants to be able to work, move, go sailing and do activities. - Walk into and grocery store and carry 1-2 light sacks without pain. - Be able to stand to do dishes. - HEP Personal Factors Other Personal Factors That May Effect Chronic R hip burisits for Therapy/Recovery past 9 months. Out of work due to R hip pain. PT-OP-C Subjective Start: 11/20/23 19:01 Freq: Status: Active Protocol: Document 01/01/24 09:51 LRN (Rec: 01/01/24 10:40 LRN [id number]) OP-PT Subjective Patient Comments Patient Comments Pt feels therapy is helping, besides the backslide from the injury from helping his father (5 days of non-stop pain in R hip at bursa location), he feels he has better posture and positioning being able to help his father , and feels daily activities ( moving boxes) are less painful . He did ice, rest to help decrease his pain at home. Feels the ultrasound is probably been helping. Walking has been helpful. He is cautious with standihg, and is tolerating less since having to help is father. PT-OP-G Mobility & Gait Start: 11/20/23 19:01 Freq: Status: Active Protocol: Document 12/04/23 14:37 LRN (Rec: 12/04/23 16:53 LRN [id number]) OP Gait Assessment Gait Gait Assistance Required: Independent Assistive Devices Assistive Device None PT-OP-J Posture/Palpation/Skin Start: 11/20/23 19:01 Freq: Status: Active Protocol: Document 12/04/23 14:37 LRN (Rec: 12/04/23 16:53 LRN [id number]) Posture Evaluation Position Standing Head/C-Spine Posture Forward Head Arm Posture (L) Internally Rotated,(R) Internally Rotated Pelvis Posture (L) PSIS Inferior Hip Posture (R) Externally Rotated Comments Posture Comments Straightened upper T/S, R PSIS is shifted fwd, atrophy of R TFL. Palpation Assessment Location R hip Palpation Location Posterior to greater trochanter Palpation Findings Tenderness Palpation Details Decreased tone of R TFL. PT-OP-K Range of Motion Start: 11/20/23 19:01 Freq: Status: Active Protocol: Document 12/04/23 14:37 LRN (Rec: 12/04/23 16:53 LRN [id number]) Lumbar Spine Range of Motion Lumbar Spine Active Degrees Testing Position Standing Flexion 80 Extension 20 Rotation Left 35 Rotation Right 40 Lateral Flexion Left 30 Lateral Flexion Right 20 Hip Goniometric Range of Motion Hip Right Passive Testing Position Supine Flexion w/Knee Flexed 136 Straight Leg Raise 55 Abduction 27 Internal Rotation 25 External Rotation 55 Comments SLR pain is anterior distal thigh With HS stretch, ankle DF caused tension in posterior lower leg. Hip AD is 20 deg's Left Passive Testing Position Supine Flexion w/Knee Flexed 136 Straight Leg Raise 55 Abduction 30 Internal Rotation 25 External Rotation 55 Comments SLR pain is anterior distal thigh. With HS stretch, ankle DF caused tension in anterior knee. Hip AD is 20 deg's Knee Goniometric Range of Motion Knee Right Patient Position Supine Flexion Active (degrees) 142 Extension Active (degrees) 0 Left Patient Position Supine Flexion Active (degrees) 142 Extension Active (degrees) 0 PT-OP-M Strength Start: 11/20/23 19:01 Freq: Status: Active Protocol: Document 01/01/24 09:51 LRN (Rec: 01/01/24 10:40 LRN [id number]) Hip Strength Hip Manual Muscle Testing Right Comments Strength is 5/5, no c/o hip pain. Left Comments Strength is 5/5, no c/o hip pain. PT-OP-Q Treatments Start: 11/20/23 19:01 Freq: Status: Active Protocol: Document 01/01/24 09:51 LRN (Rec: 01/01/24 10:40 LRN [id number]) Therapeutic Exercises Supine Exercises Hip Flex Supine Exercise Name Isometric Hold Side bilateral Reps/Minutes 1' Comments MMT Taken Piriformis stretch Supine Exercise Name Ankle over knee > Knee to chest Side bilateral Reps/Minutes 10 SH x 10 Lateral hip stretch Supine Exercise Name No pain gentle stretch Side bilateral Reps/Minutes 2-10 SH x 10 (to pt's tolerance) Comments Pt had no pain on L side, extra time for review Hip IR Supine Exercise Name Hip IR Side bilateral Resistance AROM Reps/Minutes x10 w/2 hold at end range Comments Pt sits and stands with BLE externally rotated. Prone Exercises Hip Ext Prone Exercise Name Reynold hold Side bilateral Reps/Minutes 1' Sidelying Exercises Hip AD, AD Sidelying Exercise Name Reynold hold Side bilateral Reps/Minutes 2' Comments MMT Taken Sitting Exercises Hip IR/ER reynold hold Sitting Exercise Name Reynold hold Side bilateral Reps/Minutes 2' Comments MMT Taken Piriformis stretch Sitting Exercise Name Figure 4 stretch Side bilateral Reps/Minutes 3' Comments pain free stretch Standing Exercises Calf stretch Standing Exercise Name Gastroc/soleus Side bilateral Reps/Minutes 2x30 Comments cued for alignment, gentle pain free stretch Self-Care/Home Management Treatment Education Other Education Education at pt request regarding therapy insurance coverage and attendance of therapy. Pt wanting to continue therapy but due to financial reasons would not be able to continue if not covered by insurance. It was agreed that pt will DC when insurance will not provide coverage. Activities Self-Care/Home Management Activities Issued & reviewed HEP: Supine : Piriformis stretch ( knee to opp shoulder and ankle over knee>KTC), Lateral hip stretch & Sitting Piriformis stretch (ankle over knee>KTC). Issued previously given HEP: Walking and ADL - Log roll handouts. PT-OP-R Modalities Start: 11/20/23 19:01 Freq: Status: Active Protocol: Document 12/25/23 09:46 (Rec: 12/25/23 10:44 [id number]) Ultrasound Therapy Treatment Pulsed US Patient Position Sidelying Coupling Medium Ultrasound Gel Applicator Size (cm2) 10 Frequency Setting (mHz) 1 Mode Setting Pulsed Duty Cycle 20% Intensity Setting (w/cm2) 1 Comments lateral R hip just distal to greater trochanter, x8' sidelying, pt consented to tx, pt draped with sheet, only tx area exposed, pt education on therapeutic effects and procedure prior to tx. Pt requested ultrasound today, good tolerance this session, reports it feels good. PT-OP-T Assessment and Plan Start: 11/20/23 19:01 Freq: Status: Active Protocol: Document 01/01/24 09:51 LRN (Rec: 01/01/24 10:40 LRN [id number]) Physical Therapy Assessment Rehab Potential Rehabilitation Potential Good Evaluation Complexity Number of Personal Factors/Comorbidities 1-2 Number of Body Systems Impaired 4 or More Clinical Presentation at Evaluation Evolving Impairments Impairments Activity Tolerance,Functional Activities,Pain,ROM,Soft Tissue Mobility Goals Three Impairment Pt limited in function (LEFS score 32) due to R hip pain. Short Term Goal (STG) Pt will be educated and demonstrated knowledge of proper body mechanics for ADLs w/o onset of R hip pain. 12/11/23: Body mechanics initiated, HEP HO given 12/25/23: Continued Pt education and execution of lift mechanics. 01/01/24: Pt feeling very good about being able to do the correct body mechanics. STG Duration 12/14/23 (01/01/24: MET GOAL) [facility] Goal (LTG) Improve tolerance to functional activities with pt able to tolerate work and general activities. LTG Duration 02/29/24 Two Impairment R hip pain limiting ability to walk while carrying groceries Short Term Goal (STG) Improve R hip strength/ endurance with ability to walk into a grocery store and carry 1-2 light grocery sacks without pain. 12/06/23: Iso hip abd, walking 12/25/23: STS, Continued walking, with emphasis on mechanics this session 01/01/24: Tariq Hip strength is generally 5/5. STG Duration 02/01/24 progressing 01/01/24 Documentation Spec Goal (LTG) Improve R hip strength to improve tolerance to static standing to be able to do dishes. 01/01/24: Tariq Hip strength is generally 5/5. LTG Duration 02/29/24 progressing 01/01/24 One Impairment Pt lacks appropriate self care HEP. Short Term Goal (STG) Pt will be educated in proper body mechanics for ADLs, proper sitting/standing posture with focus on pelvic postioning. 12/06/23- Initiated sitting/ standing posture (issued HEP HO) 12/11/23- Pelvic tilts, Continued pt education, focused on pelvic alignment education, pt demonstration, and visual explanation with skeleton 12/25/23: STS mechanics, hip hinge STG Duration 12/14/23 (met) [facility] Goal (LTG) Pt will be independent in an effective self care HEP for hip/core/knee strengthening and hip AD, PSLR mobility ex's . 12/06/23- Supine Isometric hip Abd (issued HEP HO), walking 12/25/23: 1.STS 2.Supine Hip ROM 3. Figure 4 stretch 5. Gastroc/soleus/Hip flexor stretch. 01/01/24: HEP: Supine: Piriformis (knee to opp shdr & fig 4 taking opp KTC, Lateral hip stretch; Sitting Piriformis of leaning shdr to opp knee. LTG Duration 02/29/24 progressed 01/01/24 Assessment Summary Assessment The pt is a 43 yo male with history of R trochanteric bursitis dx, s/p two cortisone injections that was the most helpful on the first injection . Initially, his standing tolerance was very limited, and he is limited w/R hip AD ROM, PSLR bilaterally (50 deg' s), atrophy of his TFL, and anterior shifted R pelvis (in standing). He had tenderness of R greater trochanter posteriorly (possible gluteus medius/joselin involvement), anterior knee pain (?possible poor patellar tracking or L/S dys) & L sided L3, L4 sharp pain with PA glide at spinous processess. Physical Therapy Plan Frequency and Duration Frequency of Treatment 2x/Week Duration of treatment (weeks) 8 Plan of Care Start Date 01/02/24 Plan of Care End Date 02/29/24 Therapeutic Interventions Therapeutic Interventions Balance Training,Gait Training ,Home Exercise Program,Joint Mobilizations,Manual Therapy, Neuromuscular Re-education, Self-Care/Home Management,Soft Tissue Mobilization,Taping, Therapeutic Activities, Therapeutic Exercises Modalities Cold Pack/Ice Massage,Electric Stimulation,Hot Packs, Iontophoresis,Ultrasound Other Therapeutic Interventions 4 mg/ml Dexamethasone with Phosphate. Next Visit Focus/Plan Next Note Type Treatment Note Next Visit Plan Next session: [facility] review to request 8 more wks of PT. Assess Lumbar AROM & PSLR. Follow-up on tolerance to new HEP. Ther Ex to Improve R hip, knee & core strength/endurance for improved walking/standing tolerance and HEP as needed. Add stretch to hip ADD's & Hamstring/LE neural stretch. POC: Therapeutic Ex ( strengthening/ROM)- HEP in goals, manual therapy (STM/JMT ), Gait & Balance training, Pt Education (HEP).
--- NOTE | 2024-01-02 15:52 | PT.OTN ---
Current Diagnoses Stiffness of right hip, not elsewhere classified (01/01/24) Strain of muscle, fascia and tendon of right hip, subsequent encounter (01/01/24) Physical Therapy Treatment Note PT-OP-A Visit Information Start: 11/20/23 19:01 Freq: Status: Active Protocol: Document 01/01/24 09:51 LRN (Rec: 01/01/24 10:40 LRN [id number]) Out-Patient Physical Therapy Visit Information Visit Information Visit Type Progress Note Visit Start Time 09:51 Visit Stop Time 10:38 Visit Number 5/6 Evaluation Information Evaluation Date 12/04/23 Precautions Precautions PMH: hypertension (pt reports not consistenly controlled), depression PT-OP-B Current Condition Start: 11/20/23 19:01 Freq: Status: Active Protocol: Document 12/04/23 14:37 LRN (Rec: 12/04/23 16:53 LRN [id number]) Current Condition History of Current Condition Onset Date 9 months ago Current Complaints R hip pain workening with activity. History of Current Condition Pt states he has been diagnosed with R hip bursitis that is ongoing that has gotten better and worse through time. States he had discomfort from intercourse when in R sidelie, the day his pain started. He denies difficulties with urinating or deficating. 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 Second onset of R hip pain was ~ 3-4 months ago, was off work and got a cortisone injection 2x in hip and each time was helpful but 2nd time not as helpful. Work caused reoccurance of hip pain; therefore he has had to quit work and is not getting any financial assistance for being off work. States he can't stand for any length of time. Currently no daily pain at rest, has discomfort with walking. If he uses his R leg athletically he fells a deep odd irritation (same as he felt at beginning of occurance), then sudden onset of 9/10 pain. He states he doesn't know his limits, but knows if he walks a fair amount through his day, he experiences pain so he stops. If he works, he has pain the next day. States Dr. Darius Hoffman (who gave his first injection) says he can have more collagen. States he has trochanteric bursitis. States referring physician gave him leg ex's to do at home, he did a little and slowly got better, then worse, but didn't keep doing them; therefore physical therapy was recommended. Mid back injury lifting a piano 9 yrs ago, and hasn't been able to sit or lean back very well since. Prior Treatments and Tests Pt reports no imaging. Treatment Goals Patient/Caregiver Goals Pt goals: - Wants to be able to work, move, go sailing and do activities. - Walk into and grocery store and carry 1-2 light sacks without pain. - Be able to stand to do dishes. - HEP Personal Factors Other Personal Factors That May Effect Chronic R hip burisits for Therapy/Recovery past 9 months. Out of work due to R hip pain. PT-OP-C Subjective Start: 11/20/23 19:01 Freq: Status: Active Protocol: Document 01/01/24 09:51 LRN (Rec: 01/01/24 10:40 LRN [id number]) OP-PT Subjective Patient Comments Patient Comments Pt feels therapy is helping, besides the backslide from the injury from helping his father (5 days of non-stop pain in R hip at bursa location), he feels he has better posture and positioning being able to help his father , and feels daily activities ( moving boxes) are less painful . He did ice, rest to help decrease his pain at home. Feels the ultrasound is probably been helping. Walking has been helpful. He is cautious with standihg, and is tolerating less since having to help is father. PT-OP-G Mobility & Gait Start: 11/20/23 19:01 Freq: Status: Active Protocol: Document 12/04/23 14:37 LRN (Rec: 12/04/23 16:53 LRN [id number]) OP Gait Assessment Gait Gait Assistance Required: Independent Assistive Devices Assistive Device None PT-OP-J Posture/Palpation/Skin Start: 11/20/23 19:01 Freq: Status: Active Protocol: Document 12/04/23 14:37 LRN (Rec: 12/04/23 16:53 LRN [id number]) Posture Evaluation Position Standing Head/C-Spine Posture Forward Head Arm Posture (L) Internally Rotated,(R) Internally Rotated Pelvis Posture (L) PSIS Inferior Hip Posture (R) Externally Rotated Comments Posture Comments Straightened upper T/S, R PSIS is shifted fwd, atrophy of R TFL. Palpation Assessment Location R hip Palpation Location Posterior to greater trochanter Palpation Findings Tenderness Palpation Details Decreased tone of R TFL. PT-OP-K Range of Motion Start: 11/20/23 19:01 Freq: Status: Active Protocol: Document 12/04/23 14:37 LRN (Rec: 12/04/23 16:53 LRN [id number]) Lumbar Spine Range of Motion Lumbar Spine Active Degrees Testing Position Standing Flexion 80 Extension 20 Rotation Left 35 Rotation Right 40 Lateral Flexion Left 30 Lateral Flexion Right 20 Hip Goniometric Range of Motion Hip Right Passive Testing Position Supine Flexion w/Knee Flexed 136 Straight Leg Raise 55 Abduction 27 Internal Rotation 25 External Rotation 55 Comments SLR pain is anterior distal thigh With HS stretch, ankle DF caused tension in posterior lower leg. Hip AD is 20 deg's Left Passive Testing Position Supine Flexion w/Knee Flexed 136 Straight Leg Raise 55 Abduction 30 Internal Rotation 25 External Rotation 55 Comments SLR pain is anterior distal thigh. With HS stretch, ankle DF caused tension in anterior knee. Hip AD is 20 deg's Knee Goniometric Range of Motion Knee Right Patient Position Supine Flexion Active (degrees) 142 Extension Active (degrees) 0 Left Patient Position Supine Flexion Active (degrees) 142 Extension Active (degrees) 0 PT-OP-M Strength Start: 11/20/23 19:01 Freq: Status: Active Protocol: Document 01/01/24 09:51 LRN (Rec: 01/01/24 10:40 LRN [id number]) Hip Strength Hip Manual Muscle Testing Right Comments Strength is 5/5, no c/o hip pain. Left Comments Strength is 5/5, no c/o hip pain. PT-OP-Q Treatments Start: 11/20/23 19:01 Freq: Status: Active Protocol: Document 01/01/24 09:51 LRN (Rec: 01/01/24 10:40 LRN [id number]) Therapeutic Exercises Supine Exercises Hip Flex Supine Exercise Name Isometric Hold Side bilateral Reps/Minutes 1' Comments MMT Taken Piriformis stretch Supine Exercise Name Ankle over knee > Knee to chest Side bilateral Reps/Minutes 10 SH x 10 Lateral hip stretch Supine Exercise Name No pain gentle stretch Side bilateral Reps/Minutes 2-10 SH x 10 (to pt's tolerance) Comments Pt had no pain on L side, extra time for review Hip IR Supine Exercise Name Hip IR Side bilateral Resistance AROM Reps/Minutes x10 w/2 hold at end range Comments Pt sits and stands with BLE externally rotated. Prone Exercises Hip Ext Prone Exercise Name Reynold hold Side bilateral Reps/Minutes 1' Sidelying Exercises Hip AD, AD Sidelying Exercise Name Reynold hold Side bilateral Reps/Minutes 2' Comments MMT Taken Sitting Exercises Hip IR/ER reynold hold Sitting Exercise Name Reynold hold Side bilateral Reps/Minutes 2' Comments MMT Taken Piriformis stretch Sitting Exercise Name Figure 4 stretch Side bilateral Reps/Minutes 3' Comments pain free stretch Standing Exercises Calf stretch Standing Exercise Name Gastroc/soleus Side bilateral Reps/Minutes 2x30 Comments cued for alignment, gentle pain free stretch Self-Care/Home Management Treatment Education Other Education Education at pt request regarding therapy insurance coverage and attendance of therapy. Pt wanting to continue therapy but due to financial reasons would not be able to continue if not covered by insurance. It was agreed that pt will DC when insurance will not provide coverage. Activities Self-Care/Home Management Activities Issued & reviewed HEP: Supine : Piriformis stretch ( knee to opp shoulder and ankle over knee>KTC), Lateral hip stretch & Sitting Piriformis stretch (ankle over knee>KTC). Issued previously given HEP: Walking and ADL - Log roll handouts. PT-OP-R Modalities Start: 11/20/23 19:01 Freq: Status: Active Protocol: Document 12/25/23 09:46 (Rec: 12/25/23 10:44 [id number]) Ultrasound Therapy Treatment Pulsed US Patient Position Sidelying Coupling Medium Ultrasound Gel Applicator Size (cm2) 10 Frequency Setting (mHz) 1 Mode Setting Pulsed Duty Cycle 20% Intensity Setting (w/cm2) 1 Comments lateral R hip just distal to greater trochanter, x8' sidelying, pt consented to tx, pt draped with sheet, only tx area exposed, pt education on therapeutic effects and procedure prior to tx. Pt requested ultrasound today, good tolerance this session, reports it feels good. PT-OP-T Assessment and Plan Start: 11/20/23 19:01 Freq: Status: Active Protocol: Document 01/01/24 09:51 LRN (Rec: 01/01/24 10:40 LRN [id number]) Physical Therapy Assessment Rehab Potential Rehabilitation Potential Good Evaluation Complexity Number of Personal Factors/Comorbidities 1-2 Number of Body Systems Impaired 4 or More Clinical Presentation at Evaluation Evolving Impairments Impairments Activity Tolerance,Functional Activities,Pain,ROM,Soft Tissue Mobility Goals Three Impairment Pt limited in function (LEFS score 32) due to R hip pain. Short Term Goal (STG) Pt will be educated and demonstrated knowledge of proper body mechanics for ADLs w/o onset of R hip pain. 12/11/23: Body mechanics initiated, HEP HO given 12/25/23: Continued Pt education and execution of lift mechanics. 01/01/24: Pt feeling very good about being able to do the correct body mechanics. STG Duration 12/14/23 (01/01/24: MET GOAL) Half-Way Goal (LTG) Improve tolerance to functional activities with pt able to tolerate work and general activities. LTG Duration 02/29/24 Two Impairment R hip pain limiting ability to walk while carrying groceries Short Term Goal (STG) Improve R hip strength/ endurance with ability to walk into a grocery store and carry 1-2 light grocery sacks without pain. 12/06/23: Iso hip abd, walking 12/25/23: STS, Continued walking, with emphasis on mechanics this session 01/01/24: Tariq Hip strength is generally 5/5. STG Duration 02/01/24 progressing 01/01/24 Bone Char Puller Goal (LTG) Improve R hip strength to improve tolerance to static standing to be able to do dishes. 01/01/24: Tariq Hip strength is generally 5/5. LTG Duration 02/29/24 progressing 01/01/24 One Impairment Pt lacks appropriate self care HEP. Short Term Goal (STG) Pt will be educated in proper body mechanics for ADLs, proper sitting/standing posture with focus on pelvic postioning. 12/06/23- Initiated sitting/ standing posture (issued HEP HO) 12/11/23- Pelvic tilts, Continued pt education, focused on pelvic alignment education, pt demonstration, and visual explanation with skeleton 12/25/23: STS mechanics, hip hinge STG Duration 12/14/23 (met) Half-Way Goal (LTG) Pt will be independent in an effective self care HEP for hip/core/knee strengthening and hip AD, PSLR mobility ex's . 12/06/23- Supine Isometric hip Abd (issued HEP HO), walking 12/25/23: 1.STS 2.Supine Hip ROM 3. Figure 4 stretch 5. Gastroc/soleus/Hip flexor stretch. 01/01/24: HEP: Supine: Piriformis (knee to opp shdr & fig 4 taking opp KTC, Lateral hip stretch; Sitting Piriformis of leaning shdr to opp knee. LTG Duration 02/29/24 progressed 01/01/24 Assessment Summary Assessment The pt is a 43 yo male with history of R trochanteric bursitis dx, s/p two cortisone injections that was the most helpful on the first injection . Initially, his standing tolerance was very limited, and he is limited w/R hip AD ROM, PSLR bilaterally (50 deg' s), atrophy of his TFL, and anterior shifted R pelvis (in standing). He had tenderness of R greater trochanter posteriorly (possible gluteus medius/joselin involvement), anterior knee pain (?possible poor patellar tracking or L/S dys) & L sided L3, L4 sharp pain with PA glide at spinous processess. Physical Therapy Plan Frequency and Duration Frequency of Treatment 2x/Week Duration of treatment (weeks) 8 Plan of Care Start Date 01/02/24 Plan of Care End Date 02/29/24 Therapeutic Interventions Therapeutic Interventions Balance Training,Gait Training ,Home Exercise Program,Joint Mobilizations,Manual Therapy, Neuromuscular Re-education, Self-Care/Home Management,Soft Tissue Mobilization,Taping, Therapeutic Activities, Therapeutic Exercises Modalities Cold Pack/Ice Massage,Electric Stimulation,Hot Packs, Iontophoresis,Ultrasound Other Therapeutic Interventions 4 mg/ml Dexamethasone with Phosphate. Next Visit Focus/Plan Next Note Type Treatment Note Next Visit Plan Next session: EVICORE review to request 8 more wks of PT. Assess Lumbar AROM & PSLR. Follow-up on tolerance to new HEP. Ther Ex to Improve R hip, knee & core strength/endurance for improved walking/standing tolerance and HEP as needed. Add stretch to hip ADD's & Hamstring/LE neural stretch. POC: Therapeutic Ex ( strengthening/ROM)- HEP in goals, manual therapy (STM/JMT ), Gait & Balance training, Pt Education (HEP).
--- NOTE | 2024-01-08 17:15 | PT.OTN ---
Current Diagnoses Stiffness of right hip, not elsewhere classified (01/08/24) Strain of muscle, fascia and tendon of right hip, subsequent encounter (01/08/24) Physical Therapy Treatment Note PT-OP-A Visit Information Start: 11/20/23 19:01 Freq: Status: Active Protocol: Document 01/08/24 16:38 SW (Rec: 01/08/24 17:15 SW [id number]) Out-Patient Physical Therapy Visit Information Visit Information Visit Type Treatment Note Visit Note Pt late Visit Start Time 10:51 Visit Stop Time 11:30 Visit Number 6/6 Number of DRAPERY SEAMSTRESS Visits 1 Precautions Precautions PMH: hypertension (pt reports not consistenly controlled), depression PT-OP-B Current Condition Start: 11/20/23 19:01 Freq: Status: Active Protocol: Document 12/04/23 14:37 LRN (Rec: 12/04/23 16:53 LRN [id number]) Current Condition History of Current Condition Onset Date 9 months ago Current Complaints R hip pain workening with activity. History of Current Condition Pt states he has been diagnosed with R hip bursitis that is ongoing that has gotten better and worse through time. States he had discomfort from intercourse when in R sidelie, the day his pain started. He denies difficulties with urinating or deficating. 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 Second onset of R hip pain was ~ 3-4 months ago, was off work and got a cortisone injection 2x in hip and each time was helpful but 2nd time not as helpful. Work caused reoccurance of hip pain; therefore he has had to quit work and is not getting any financial assistance for being off work. States he can't stand for any length of time. Currently no daily pain at rest, has discomfort with walking. If he uses his R leg athletically he fells a deep odd irritation (same as he felt at beginning of occurance), then sudden onset of 9/10 pain. He states he doesn't know his limits, but knows if he walks a fair amount through his day, he experiences pain so he stops. If he works, he has pain the next day. States Dr. Darius Hoffman (who gave his first injection) says he can have more collagen. States he has trochanteric bursitis. States referring physician gave him leg ex's to do at home, he did a little and slowly got better, then worse, but didn't keep doing them; therefore physical therapy was recommended. Mid back injury lifting a piano 9 yrs ago, and hasn't been able to sit or lean back very well since. Prior Treatments and Tests Pt reports no imaging. Treatment Goals Patient/Caregiver Goals Pt goals: - Wants to be able to work, move, go sailing and do activities. - Walk into and grocery store and carry 1-2 light sacks without pain. - Be able to stand to do dishes. - HEP Personal Factors Other Personal Factors That May Effect Chronic R hip burisits for Therapy/Recovery past 9 months. Out of work due to R hip pain. PT-OP-C Subjective Start: 11/20/23 19:01 Freq: Status: Active Protocol: Document 01/08/24 16:38 SW (Rec: 01/08/24 17:15 SW [id number]) OP-PT Subjective Patient Comments Patient Comments Pt arrived to session today on motorcycle. Pt reports been doing ok. Pt reports has been doing HEP, would like to review a couple that may be painful. PT-OP-G Mobility & Gait Start: 11/20/23 19:01 Freq: Status: Active Protocol: Document 12/04/23 14:37 LRN (Rec: 12/04/23 16:53 LRN [id number]) OP Gait Assessment Gait Gait Assistance Required: Independent Assistive Devices Assistive Device None PT-OP-J Posture/Palpation/Skin Start: 11/20/23 19:01 Freq: Status: Active Protocol: Document 12/04/23 14:37 LRN (Rec: 12/04/23 16:53 LRN [id number]) Posture Evaluation Position Standing Head/C-Spine Posture Forward Head Arm Posture (L) Internally Rotated,(R) Internally Rotated Pelvis Posture (L) PSIS Inferior Hip Posture (R) Externally Rotated Comments Posture Comments Straightened upper T/S, R PSIS is shifted fwd, atrophy of R TFL. Palpation Assessment Location R hip Palpation Location Posterior to greater trochanter Palpation Findings Tenderness Palpation Details Decreased tone of R TFL. PT-OP-K Range of Motion Start: 11/20/23 19:01 Freq: Status: Active Protocol: Document 12/04/23 14:37 LRN (Rec: 12/04/23 16:53 LRN [id number]) Lumbar Spine Range of Motion Lumbar Spine Active Degrees Testing Position Standing Flexion 80 Extension 20 Rotation Left 35 Rotation Right 40 Lateral Flexion Left 30 Lateral Flexion Right 20 Hip Goniometric Range of Motion Hip Right Passive Testing Position Supine Flexion w/Knee Flexed 136 Straight Leg Raise 55 Abduction 27 Internal Rotation 25 External Rotation 55 Comments SLR pain is anterior distal thigh With HS stretch, ankle DF caused tension in posterior lower leg. Hip AD is 20 deg's Left Passive Testing Position Supine Flexion w/Knee Flexed 136 Straight Leg Raise 55 Abduction 30 Internal Rotation 25 External Rotation 55 Comments SLR pain is anterior distal thigh. With HS stretch, ankle DF caused tension in anterior knee. Hip AD is 20 deg's Knee Goniometric Range of Motion Knee Right Patient Position Supine Flexion Active (degrees) 142 Extension Active (degrees) 0 Left Patient Position Supine Flexion Active (degrees) 142 Extension Active (degrees) 0 PT-OP-M Strength Start: 11/20/23 19:01 Freq: Status: Active Protocol: Document 01/01/24 09:51 LRN (Rec: 01/01/24 10:40 LRN [id number]) Hip Strength Hip Manual Muscle Testing Right Comments Strength is 5/5, no c/o hip pain. Left Comments Strength is 5/5, no c/o hip pain. PT-OP-Q Treatments Start: 11/20/23 19:01 Freq: Status: Active Protocol: Document 01/08/24 16:38 SW (Rec: 01/08/24 17:15 SW [id number]) Therapeutic Exercises Supine Exercises Hip Add Supine Exercise Name Hip Add stretch Side bilateral Reps/Minutes x30 Comments cued for pain free stretch HS stretch Supine Exercise Name 1. HS stretch 2. HS stretch w/ AP Equipment Used Used towel to hold LE Reps/Minutes 1. 2x30 hold 2. x10 AP Comments cued for pain free stretch, LE alignment Core Supine Exercise Name 1.TA activation w/PPT 2.BKFO Side bilateral Equipment Used DRAPERY SEAMSTRESS/pt tactile feedback for activation of TA Reps/Minutes 1. 10x5 hold 2. x10 ea Comments extra time for pt education, cued small range only for BKFO Piriformis stretch Supine Exercise Name reviewed Lateral hip stretch Supine Exercise Name No pain gentle stretch Side bilateral Reps/Minutes 2-10 SH x 10 (to pt's tolerance) Comments monitored for pain, cued gentle pain free Hip IR Supine Exercise Name Hip IR Side bilateral Resistance AROM Reps/Minutes x10 w/2 hold at end range Comments cued gentle pain free range Prone Exercises Hip Ext Prone Exercise Name Reynold hold- Trialed in standing - improved tolerance issued ( HEP 01/08/24) Side bilateral Reps/Minutes 1' Comments pillow support under low abdomin for lumbar Sitting Exercises Piriformis stretch Sitting Exercise Name Figure 4 stretch- Reviewed Side bilateral Reps/Minutes 3' Comments pain free stretch Standing Exercises Hip EX Standing Exercise Name Hip Ext (issued HEP ) Side bilateral Resistance Isometric hold Equipment Used @ counter Reps/Minutes x1' Comments standing vs prone today- improved pt tolerance Other Exercises STS Other Exercise Name STS Side bilateral Resistance AROM Reps/Minutes x8 Comments good tolerance, improved mechanics, cued for cervical alignment Self-Care/Home Management Treatment Education Patient Education Body Mechanics,Home Exercise Program,Joint Protection,Pain Management Other Education Pt education on HEP. PT-OP-R Modalities Start: 11/20/23 19:01 Freq: Status: Active Protocol: Document 12/25/23 09:46 SW (Rec: 12/25/23 10:44 [id number]) Ultrasound Therapy Treatment Pulsed US Patient Position Sidelying Coupling Medium Ultrasound Gel Applicator Size (cm2) 10 Frequency Setting (mHz) 1 Mode Setting Pulsed Duty Cycle 20% Intensity Setting (w/cm2) 1 Comments lateral R hip just distal to greater trochanter, x8' sidelying, pt consented to tx, pt draped with sheet, only tx area exposed, pt education on therapeutic effects and procedure prior to tx. Pt requested ultrasound today, good tolerance this session, reports it feels good. PT-OP-T Assessment and Plan Start: 11/20/23 19:01 Freq: Status: Active Protocol: Document 01/08/24 16:38 SW (Rec: 01/08/24 17:15 [id number]) Physical Therapy Assessment Goals Three Impairment Pt limited in function (LEFS score 32) due to R hip pain. Short Term Goal (STG) Pt will be educated and demonstrated knowledge of proper body mechanics for ADLs w/o onset of R hip pain. 12/11/23: Body mechanics initiated, HEP HO given 12/25/23: Continued Pt education and execution of lift mechanics. 01/01/24: Pt feeling very good about being able to do the correct body mechanics. STG Duration 12/14/23 (01/01/24: MET GOAL) [employer] Wafer Goal (LTG) Improve tolerance to functional activities with pt able to tolerate work and general activities. LTG Duration 02/29/24 Two Impairment R hip pain limiting ability to walk while carrying groceries Short Term Goal (STG) Improve R hip strength/ endurance with ability to walk into a grocery store and carry 1-2 light grocery sacks without pain. 12/06/23: Iso hip abd, walking 12/25/23: STS, Continued walking, with emphasis on mechanics this session 01/01/24: Tariq Hip strength is generally 5/5. STG Duration 02/01/24 progressing 01/01/24 Residential Goal (LTG) Improve R hip strength to improve tolerance to static standing to be able to do dishes. 01/01/24: Tariq Hip strength is generally 5/5. LTG Duration 02/29/24 progressing 01/01/24 One Impairment Pt lacks appropriate self care HEP. Short Term Goal (STG) Pt will be educated in proper body mechanics for ADLs, proper sitting/standing posture with focus on pelvic postioning. 12/06/23- Initiated sitting/ standing posture (issued HEP HO) 12/11/23- Pelvic tilts, Continued pt education, focused on pelvic alignment education, pt demonstration, and visual explanation with skeleton 12/25/23: STS mechanics, hip hinge STG Duration 12/14/23 (met) [employer] Wafer Goal (LTG) Pt will be independent in an effective self care HEP for hip/core/knee strengthening and hip AD, PSLR mobility ex's . 12/06/23- Supine Isometric hip Abd (issued HEP HO), walking 12/25/23: 1.STS 2.Supine Hip ROM 3. Figure 4 stretch 5. Gastroc/soleus/Hip flexor stretch. 01/01/24: HEP: Supine: Piriformis (knee to opp shdr & fig 4 taking opp KTC, Lateral hip stretch; Sitting Piriformis of leaning shdr to opp knee. 01/08/24: HEP: Hip Ext strength, TA activation w/PPT, TA activation w/ BKFO LTG Duration 02/29/24 progressed 01/01/24 Assessment Summary Assessment Progressed pt strength this session, initiated core strengthening in supine, pt tolerated well, extended time for pt education. Assessed pt PSLR on R this session, pt limited to ~ 50 degrees before onset of pt discomfort. Initiated HS stretch this session with and without APs. Reviewed with pt exercise tolerance, and to stay within pain free range with exercises and not push into increasing pain. Physical Therapy Plan Frequency and Duration Frequency of Treatment 2x/Week Duration of treatment (weeks) 8 Plan of Care Start Date 01/02/24 Plan of Care End Date 02/29/24 Therapeutic Interventions Therapeutic Interventions Balance Training,Gait Training ,Home Exercise Program,Joint Mobilizations,Manual Therapy, Neuromuscular Re-education, Self-Care/Home Management,Soft Tissue Mobilization,Taping, Therapeutic Activities, Therapeutic Exercises Modalities Cold Pack/Ice Massage,Electric Stimulation,Hot Packs, Iontophoresis,Ultrasound Other Therapeutic Interventions 4 mg/ml Dexamethasone with Phosphate. Next Visit Focus/Plan Next Note Type Treatment Note Next Visit Plan Next session: Assess Lumbar AROM. Review HS stretch/hip add stretch initiated last session and issue HEP HO if pt tolerates well. Ther Ex to Improve R hip, knee & core strength/endurance for improved walking/standing tolerance and HEP as needed. Add stretch to hip ADD's & Hamstring/LE neural stretch. POC: Therapeutic Ex ( strengthening/ROM)- HEP in goals, manual therapy (STM/JMT ), Gait & Balance training, Pt Education (HEP).
--- NOTE | 2024-06-17 19:32 | PT.OPDS ---
Current Diagnoses Stiffness of right hip, not elsewhere classified (01/08/24) Strain of muscle, fascia and tendon of right hip, subsequent encounter (01/08/24) Visit Care Team Role Provider Type Evangelina Nava DO Family Provider Physician Specialty: [facility] Address: [address] [place] [address], [address], [place], [address] Email: .[employer] [facility] Darius Hoffman DO Attending Provider Physician Primary Care Provider Referring Provider Specialty: [facility] Address: [address] [place] [address], [id number] Email: [email or web address] Visit Number Visit Number 07/18 Discharge Summary PT-OP-B Current Condition Start: 11/20/23 19:01 Freq: Status: Active Protocol: Document 12/04/23 14:37 LRN (Rec: 12/04/23 16:53 LRN [id number]) Current Condition History of Current Condition Onset Date 9 months ago Current Complaints R hip pain workening with activity. History of Current Condition Pt states he has been diagnosed with R hip bursitis that is ongoing that has gotten better and worse through time. States he had discomfort from intercourse when in R sidelie, the day his pain started. He denies difficulties with urinating or deficating. 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 Second onset of R hip pain was ~ 3-4 months ago, was off work and got a cortisone injection 2x in hip and each time was helpful but 2nd time not as helpful. Work caused reoccurance of hip pain; therefore he has had to quit work and is not getting any financial assistance for being off work. States he can't stand for any length of time. Currently no daily pain at rest, has discomfort with walking. If he uses his R leg athletically he fells a deep odd irritation (same as he felt at beginning of occurance), then sudden onset of 9/10 pain. He states he doesn't know his limits, but knows if he walks a fair amount through his day, he experiences pain so he stops. If he works, he has pain the next day. States Dr. Darius Hoffman (who gave his first injection) says he can have more collagen. States he has trochanteric bursitis. States referring physician gave him leg ex's to do at home, he did a little and slowly got better, then worse, but didn't keep doing them; therefore physical therapy was recommended. Mid back injury lifting a piano 9 yrs ago, and hasn't been able to sit or lean back very well since. Prior Treatments and Tests Pt reports no imaging. Treatment Goals Patient/Caregiver Goals Pt goals: - Wants to be able to work, move, go sailing and do activities. - Walk into and grocery store and carry 1-2 light sacks without pain. - Be able to stand to do dishes. - HEP Personal Factors Other Personal Factors That May Effect Chronic R hip burisits for Therapy/Recovery past 9 months. Out of work due to R hip pain. PT-OP-C Subjective Start: 11/20/23 19:01 Freq: Status: Active Protocol: Document 01/08/24 16:38 SW (Rec: 01/08/24 17:15 SW [id number]) OP-PT Subjective Patient Comments Patient Comments Pt arrived to session today on motorcycle. Pt reports been doing ok. Pt reports has been doing HEP, would like to review a couple that may be painful. PT-OP-G Mobility & Gait Start: 11/20/23 19:01 Freq: Status: Active Protocol: Document 12/04/23 14:37 LRN (Rec: 12/04/23 16:53 LRN [id number]) OP Gait Assessment Gait Gait Assistance Required: Independent Assistive Devices Assistive Device None PT-OP-J Posture/Palpation/Skin Start: 11/20/23 19:01 Freq: Status: Active Protocol: Document 12/04/23 14:37 LRN (Rec: 12/04/23 16:53 LRN [id number]) Posture Evaluation Position Standing Head/C-Spine Posture Forward Head Arm Posture (L) Internally Rotated,(R) Internally Rotated Pelvis Posture (L) PSIS Inferior Hip Posture (R) Externally Rotated Comments Posture Comments Straightened upper T/S, R PSIS is shifted fwd, atrophy of R TFL. Palpation Assessment Location R hip Palpation Location Posterior to greater trochanter Palpation Findings Tenderness Palpation Details Decreased tone of R TFL. PT-OP-K Range of Motion Start: 11/20/23 19:01 Freq: Status: Active Protocol: Document 12/04/23 14:37 LRN (Rec: 12/04/23 16:53 LRN [id number]) Lumbar Spine Range of Motion Lumbar Spine Active Degrees Testing Position Standing Flexion 80 Extension 20 Rotation Left 35 Rotation Right 40 Lateral Flexion Left 30 Lateral Flexion Right 20 Hip Goniometric Range of Motion Hip Right Passive Testing Position Supine Flexion w/Knee Flexed 136 Straight Leg Raise 55 Abduction 27 Internal Rotation 25 External Rotation 55 Comments SLR pain is anterior distal thigh With HS stretch, ankle DF caused tension in posterior lower leg. Hip AD is 20 deg's Left Passive Testing Position Supine Flexion w/Knee Flexed 136 Straight Leg Raise 55 Abduction 30 Internal Rotation 25 External Rotation 55 Comments SLR pain is anterior distal thigh. With HS stretch, ankle DF caused tension in anterior knee. Hip AD is 20 deg's Knee Goniometric Range of Motion Knee Right Patient Position Supine Flexion Active (degrees) 142 Extension Active (degrees) 0 Left Patient Position Supine Flexion Active (degrees) 142 Extension Active (degrees) 0 PT-OP-M Strength Start: 11/20/23 19:01 Freq: Status: Active Protocol: Document 01/01/24 09:51 LRN (Rec: 01/01/24 10:40 LRN [id number]) Hip Strength Hip Manual Muscle Testing Right Comments Strength is 5/5, no c/o hip pain. Left Comments Strength is 5/5, no c/o hip pain. PT-OP-T Assessment and Plan Start: 11/20/23 19:01 Freq: Status: Active Protocol: Document 06/17/24 19:26 LRN (Rec: 06/17/24 19:32 LRN [email or web address]) Physical Therapy Assessment Goals Three Impairment Pt limited in function (LEFS score 32) due to R hip pain. Short Term Goal (STG) Pt will be educated and demonstrated knowledge of proper body mechanics for ADLs w/o onset of R hip pain. 12/11/23: Body mechanics initiated, HEP HO given 12/25/23: Continued Pt education and execution of lift mechanics. 01/01/24: Pt feeling very good about being able to do the correct body mechanics. STG Duration 12/14/23 (01/01/24: MET GOAL) [employer] Goal (LTG) Improve tolerance to functional activities with pt able to tolerate work and general activities. LTG Duration 02/29/24 Two Impairment R hip pain limiting ability to walk while carrying groceries Short Term Goal (STG) Improve R hip strength/ endurance with ability to walk into a grocery store and carry 1-2 light grocery sacks without pain. 12/06/23: Iso hip abd, walking 12/25/23: STS, Continued walking, with emphasis on mechanics this session 01/01/24: Tariq Hip strength is generally 5/5. STG Duration 02/01/24 progressing 01/01/24 Long-Term Goal (LTG) Improve R hip strength to improve tolerance to static standing to be able to do dishes. 01/01/24: Tariq Hip strength is generally 5/5. LTG Duration 02/29/24 progressing 01/01/24 One Impairment Pt lacks appropriate self care HEP. Short Term Goal (STG) Pt will be educated in proper body mechanics for ADLs, proper sitting/standing posture with focus on pelvic postioning. 12/06/23- Initiated sitting/ standing posture (issued HEP HO) 12/11/23- Pelvic tilts, Continued pt education, focused on pelvic alignment education, pt demonstration, and visual explanation with skeleton 12/25/23: STS mechanics, hip hinge STG Duration 12/14/23 (met) [facility] [employer]ist [facility] Goal (LTG) Pt will be independent in an effective self care HEP for hip/core/knee strengthening and hip AD, PSLR mobility ex's . 12/06/23- Supine Isometric hip Abd (issued HEP HO), walking 12/25/23: 1.STS 2.Supine Hip ROM 3. Figure 4 stretch 5. Gastroc/soleus/Hip flexor stretch. 01/01/24: HEP: Supine: Piriformis (knee to opp shdr & fig 4 taking opp KTC, Lateral hip stretch; Sitting Piriformis of leaning shdr to opp knee. 01/08/24: HEP: Hip Ext strength, TA activation w/PPT, TA activation w/ BKFO LTG Duration 02/29/24 progressed 01/01/24 Assessment Summary Assessment The pt was last seen 01/08/24. He was seen for his initial eval on 12/04/23 and was seen for 6/6 treatment visits. The pt was allowed 3 more treatment visits but he failed to schedule more visits. The pt made some progress, but goals were not met. The pt is now beyond his plan of care and has not been attending physical therapy; therefore he is being discharged from PT. Physical Therapy Plan Discharge Physical Therapy Discharge Reasons No Longer Attending PT Discharge Comments Thank you for your referral.
== END 2024-06-19 09:57 | disposition home or self-care (01) ==
LOC: PHYS 10:45
PROVIDERS: Family Provider Family Medicine; PCP Family Medicine; Referring Provider Family Medicine; Visit Provider Family Medicine
DX: S76.011D Strain of muscle, fascia and tendon of right hip, subsequent encounter (principal); M25.651 Stiffness of right hip, not elsewhere classified
CPT/HCPCS: 97035; 97110; 97162; 97530; 97535

== ENCOUNTER → 2024-03-03 15:28 | Outpatient (CLI) | payer OTHER, SELFPAY ==
--- NOTE | 2024-03-03 15:30 | DI.RAD.S_ITS ---
PROCEDURE: XR CHEST 2V INDICATIONS: Persistent cough TECHNIQUE: 2 views of the chest were acquired. COMPARISON: None. FINDINGS: Surgical changes and devices: None. Lungs and pleura: Lungs are clear. No pleural effusions or pneumothorax. Mediastinum: Mediastinal contours are normal. Heart size is normal. Bones and chest wall: No suspicious bony abnormalities. Soft tissues appear unremarkable. IMPRESSION: No acute cardiopulmonary abnormality is seen. Dictated by: Anahi Park M.D. on 03/03/2024 at 17:24 Approved by: Anahi Park M.D. on 03/03/2024 at 17:24
== END ==
PROVIDERS: Family Provider Family Medicine; PCP Family Medicine; Referring Provider Family Medicine; Visit Provider Family Medicine
DX: R05.9 Cough, unspecified (principal); I10 Essential (primary) hypertension
CPT/HCPCS: 71046